=== PATIENT | female | born 1995 | race Caucasian/White ===

== ENCOUNTER 2016-07-29 21:58 | Emergency (ER) | payer OTHER, SELFPAY ==
--- NOTE | 2016-07-29 22:22 | EDM.PDOC ---
ED HPI GENERAL MEDICAL PROBLEM - General Chief Complaint: Gastrointestinal Problem Stated Complaint: BACK AND RIB PAIN Time Seen by Provider: 07/29/16 22:21 - History of Present Illness INITIAL COMMENTS - FREE TEXT/NARRATIVE: 20-year-old female presents emergency room with abdominal pain. This pain has for the most part resolved however occurred about an hour and a half ago in her right flank and wraps around to her right upper quadrant. She did not have any nausea or vomiting associated with this this started about 3 hours after her evening meal. The pain was not associated with any nausea vomiting constipation or diarrhea. Middle Back Pain Score (Numeric/FACES): 2 - Related Data Allergies Allergy/AdvReac Type Severity Reaction Status Date / Time Penicillins Allergy Hives Verified 07/29/16 22:20 Home Meds: Home Meds . 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 Denies: Constipation, Diarrhea, Nausea, Vomiting : Reports: no symptoms ED EXAM, GI/ABD - Physical Exam Exam: See Below Exam Limited By: No limitations General Appearance: alert, no apparent distress Head: atraumatic, normocephalic Neck: normal inspection, supple, non-tender, full range of motion Respiratory/Chest: no respiratory distress, lungs clear, normal breath sounds Cardiovascular: regular rate, rhythm, no edema, no murmur GI/Abdominal: Normal Bowel Sounds, Soft, Non-Tender, No Organomegaly Course - Vital Signs Last Recorded V/S: Last Vital Signs Temp 36.2 C 07/29/16 22:21 Pulse 68 07/29/16 22:21 Resp 16 07/29/16 22:21 BP 117/71 07/29/16 22:21 Pulse Ox 99 07/29/16 22:21 - Orders/Labs/Meds Labs: Laboratory Tests 05/01/0507/29/16 07/29/16 Range/Units 23:15 23:15 23:28 WBC 11.27 H (3.98-10.04) K/mm3 RBC 4.71 (3.98-5.22) M/mm3 Hgb 14.2 (11.2-15.7) gm/L Hct 41.5 (34.1-44.9) % MCV 88.1 (79.4-94.8) fl MCH 30.1 (25.6-32.2) pg MCHC 34.2 (32.2-35.5) g/dl RDW Std Deviation 42.7 (36.4-46.3) fL Plt Count 318 (182-369) K/mm3 MPV 10.0 (9.4-12.3) fl Neutrophils % (Manual) 73 H (40-60) % Band Neutrophils % 0 (0-10) % Lymphocytes % (Manual) 21 (20-40) % Atypical Lymphs % 0 % Monocytes % (Manual) 5 (2-10) % Eosinophils % (Manual) 1 (0.7-5.8) % Basophils % (Manual) 0 L (0.1-1.2) Platelet Estimate Adequate RBC Morph Comment Normal Sodium (136-145) mEq/L Potassium (3.5-5.1) mEq/L Chloride (98-107) mEq/L Carbon Dioxide (21-32) mEq/L Anion Gap (5-15) BUN (7-18) mg/dL Creatinine (0.55-1.02) mg/dL Est Cr Clr Drug Dosing mL/min Estimated GFR (MDRD) (>60) mL/min BUN/Creatinine Ratio (14-18) Glucose (74-106) mg/dL Calcium (8.5-10.1) mg/dL Total Bilirubin (0.2-1.0) mg/dL AST (15-37) U/L ALT (14-59) U/L Alkaline Phosphatase (46-116) U/L Total Protein (6.4-8.2) g/dl Albumin (3.4-5.0) g/dl Globulin gm/dL Albumin/Globulin Ratio (1-2) Lipase (73-393) U/L Urine Color Yellow (Yellow) Urine Appearance Clear (Clear) Urine pH 6.5 (5.0-8.0) Ur Specific [place] 1.025 (1.005-1.030) Urine Protein Negative (Negative) Urine Glucose (UA) Negative (Negative) Urine Ketones Negative (Negative) Urine Occult Blood Negative (Negative) Urine Nitrite Negative (Negative) Urine Bilirubin Negative (Negative) Urine Urobilinogen 0.2 (0.2-1.0) Ur Leukocyte Esterase Negative (Negative) Urine RBC 0-5 (0-5) /hpf Urine WBC 0-5 (0-5) /hpf Ur Epithelial Cells 0-5 (0-5) /hpf Ur Squamous Epith Cells 0-5 (0-5) /hpf Amorphous Sediment Few H (NOT SEEN) /hpf Urine Bacteria Not seen (FEW) /hpf Urine Mucus Not seen (FEW) /hpf Urine HCG, Qual Negative (NEGATIVE) 07/29/16 Range/Units 23:28 WBC (3.98-10.04) K/mm3 RBC (3.98-5.22) M/mm3 Hgb (11.2-15.7) gm/L Hct (34.1-44.9) % MCV (79.4-94.8) fl MCH (25.6-32.2) pg MCHC (32.2-35.5) g/dl RDW Std Deviation (36.4-46.3) fL Plt Count (182-369) K/mm3 MPV (9.4-12.3) fl Neutrophils % (Manual) (40-60) % Band Neutrophils % (0-10) % Lymphocytes % (Manual) (20-40) % Atypical Lymphs % % Monocytes % (Manual) (2-10) % Eosinophils % (Manual) (0.7-5.8) % Basophils % (Manual) (0.1-1.2) Platelet Estimate RBC Morph Comment Sodium 141 (136-145) mEq/L Potassium 3.8 (3.5-5.1) mEq/L Chloride 107 (98-107) mEq/L Carbon Dioxide 30 (21-32) mEq/L Anion Gap 7.8 (5-15) BUN 9 (7-18) mg/dL Creatinine 0.9 (0.55-1.02) mg/dL Est Cr Clr Drug Dosing 83.17 mL/min Estimated GFR (MDRD) > 60 (>60) mL/min BUN/Creatinine Ratio 10.0 L (14-18) Glucose 81 (74-106) mg/dL Calcium 9.5 (8.5-10.1) mg/dL Total Bilirubin 0.2 (0.2-1.0) mg/dL AST 14 L (15-37) U/L ALT 29 (14-59) U/L Alkaline Phosphatase 107 (46-116) U/L Total Protein 7.4 (6.4-8.2) g/dl Albumin 3.9 (3.4-5.0) g/dl Globulin 3.5 gm/dL Albumin/Globulin Ratio 1.1 (1-2) Lipase 174 (73-393) U/L Urine Color (Yellow) Urine Appearance (Clear) Urine pH (5.0-8.0) Ur Specific [place] (1.005-1.030) Urine Protein (Negative) Urine Glucose (UA) (Negative) Urine Ketones (Negative) Urine Occult Blood (Negative) Urine Nitrite (Negative) Urine Bilirubin (Negative) Urine Urobilinogen (0.2-1.0) Ur Leukocyte Esterase (Negative) Urine RBC (0-5) /hpf Urine WBC (0-5) /hpf Ur Epithelial Cells (0-5) /hpf Ur Squamous Epith Cells (0-5) /hpf Amorphous Sediment (NOT SEEN) /hpf Urine Bacteria (FEW) /hpf Urine Mucus (FEW) /hpf Urine HCG, Qual (NEGATIVE) - Re-Assessments/Exams Free Text/Narrative Re-Assessment/Exam: 07/30/16 00:57 Laboratory evaluation nondiagnostic hCG is negative. Because of her abdominal pain that has since resolved is unclear at this point. The patient agrees to return to the emergency room in 12-24 hours if not better sooner if getting worse. Departure - Departure Time of Disposition: 00:58 Disposition: Home, Self-Care 01 Clinical Impression: Abdominal pain of unknown cause - Discharge Information Instructions: Abdominal Pain, Adult, [id number] Referrals: PCP,None [Primary Care Provider] - Forms: ED Department Discharge Additional Instructions: Return to the emergency room with any questions or problems. Return to the emergency room in 12-24 hours if not better sooner if getting worse The cause of your abdominal pain is not certain at this time. Clear liquid diet for the next 12 hours then slowly advance as tolerated. Followup in the clinic here at the hospital in 2 days for recheck. If this pain continues to be a recurrent problem consider a gallbladder ultrasound.
[2016-07-29 22:24] VITALS: BP 117/71
== END 2016-07-30 01:13 | disposition home or self-care (01) ==
LOC: JD.ED 21:58
DX: R10.11 Right upper quadrant pain (principal); Z88.0 Allergy status to penicillin; Z87.891 Personal history of nicotine dependence; Z98.890 Other specified postprocedural states
CPT/HCPCS: 36415; 80053; 81001; 81025; 83690; 85025; 99282; 99284

== ENCOUNTER 2016-08-16 23:49 | Emergency (ER) | payer OTHER, SELFPAY ==
[2016-08-16 23:56] VITALS: BP 116/72
--- NOTE | 2016-08-16 23:58 | EDM.PDOC ---
ED HPI GENERAL MEDICAL PROBLEM - General Chief Complaint: Back Pain or Injury Stated Complaint: [facility] Time Seen by Provider: 08/16/16 23:50 - History of Present Illness INITIAL COMMENTS - FREE TEXT/NARRATIVE: 20-year-old female returns emergency room via EMS with back pain. The pain is for the most part resolved at this point it came on roughly an hour ago with severe midthoracic radiated along her right side and under her diaphragm. The patient has been seen here one time for this before several weeks ago. She has done well during this time until tonight she ate supper around 6:00 this evening [employer] and [employer]. However did not have the discomfort until about 11:00 this evening. This was not associated with nausea or vomiting. The way she describes it he can almost been diaphragmatic spasm. She has not had a cough or congestion no fevers or chills. The patient has not had any low back discomfort however she has a family history of low back problems she has not had any pain going into her legs no loss of bowel or bladder control. 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, Social & Family History - Tobacco Use Smoking Status *Q: Former Smoker Years of Tobacco use: 3 Packs/Tins Daily: 1 Month Tobacco Last Used: 1 week ago - Recreational Drug Use Recreational Drug Use: No ED ROS GENERAL - Review of Systems Review Of Systems: See Below Constitutional: Reports: No Symptoms HEENT: Reports: No Symptoms Respiratory: Reports: No Symptoms, Other (She has some midthoracic pain tends to radiate to the level of her diaphragm) Cardiovascular: Reports: No Symptoms GI/Abdominal: Reports: Abdominal Pain (She is upper abdominal pain perhaps a little worse on the right compared to the left denies any reflux GERD or heartburn) : Reports: No Symptoms Neurological: Reports: No Symptoms ED EXAM,LOWER BACK PAIN/INJURY - Physical Exam Exam: See Below Exam Limited By: No Limitations General Appearance: Alert, No Apparent Distress Head: Atraumatic, Normocephalic Neck: Normal Inspection, Supple, Non-Tender, Full Range of Motion Respiratory/Chest: No Respiratory Distress, Lungs Clear, Normal Breath Sounds Cardiovascular: Regular Rate, Rhythm, No Edema, No Murmur GI/Abdominal: Normal Bowel Sounds, Soft, Non-Tender Back Exam: Normal Inspection, Vertebral Tenderness (She has significant vertebral tenderness at about T8 or T9 this is reproducible). No: CVA Tenderness (L), CVA Tenderness (R) Extremities: Normal Inspection, No Pedal Edema, Other (Straight leg raises negative) Course - Vital Signs Last Recorded V/S: Last Vital Signs Temp 35.6 C 08/16/16 23:51 Pulse 65 08/16/16 23:51 Resp 18 08/16/16 23:51 BP 116/72 08/16/16 23:51 Pulse Ox 100 08/16/16 23:51 - Orders/Labs/Meds Orders: Active Orders 24 hr Category Date Time Status Chest 1V Frontal [CR] Stat Exams 08/17/16 00:19 Taken Thoracic Spine 2V [CR] Stat Exams 08/17/16 00:09 Taken Labs: Laboratory Tests 08/17/16 08/17/16 Range/Units 00:16 00:16 Urine Color Yellow (Yellow) Urine Appearance Slt cloudy H (Clear) Urine pH 7.0 (5.0-8.0) Ur Specific [place] 1.020 (1.005-1.030) Urine Protein Trace H (Negative) Urine Glucose (UA) Negative (Negative) Urine Ketones Negative (Negative) Urine Occult Blood Negative (Negative) Urine Nitrite Negative (Negative) Urine Bilirubin Negative (Negative) Urine Urobilinogen 0.2 (0.2-1.0) Ur Leukocyte Esterase Negative (Negative) Urine RBC 0-5 (0-5) /hpf Urine WBC 0-5 (0-5) /hpf Ur Epithelial Cells Not Reportable Ur Squamous Epith Cells 0-5 (0-5) /hpf Amorphous Sediment Moderate H (NOT SEEN) /hpf Urine Bacteria Moderate H (FEW) /hpf Urine Mucus Few (FEW) /hpf Urine HCG, Qual Negative (NEGATIVE) - Re-Assessments/Exams Free Text/Narrative Re-Assessment/Exam: 08/17/16 01:40 Urinalysis is not suggestive of infectious process or other etiology. Her hCG is negative thoracic spine has no acute changes nor does AP chest. The cause of her pain is somewhat unclear it comes and goes consideration is diaphragmatic spasm muscle spasm it would be atypical for cholelithiasis and biliary colic but this is a possibility. At this point the patient is to followup in the clinic for further evaluation and treatment. We will discharge her with [place] # [id number], [phone] one or 2 every 6 hours as needed. The patient understands that if she uses the pain medication she should allow her self 12 hours after taking it before driving or returning to work. Departure - Departure Time of Disposition: 01:42 Disposition: Home, Self-Care Clinical Impression: Thoracic back pain, Upper abdominal pain of unknown etiology - Discharge Information Forms: ED Department Discharge Additional Instructions: Return to the emergency room with any questions or problems. Followup in the hospital clinic for further evaluation for this pain. [phone]. You've been given a prescription for [place] this is a pain medication take it only as needed one or 2 tablets every 6 hours. Allow 12 hours after using this medication before driving or returning to work. - My Orders Last 24 Hours: My Active Orders 08/17/16 00:09 Thoracic Spine 2V [CR] Stat 08/17/16 00:19 Chest 1V Frontal [CR] Stat - Assessment/Plan Last 24 Hours: My Active Orders 08/17/16 00:09 Thoracic Spine 2V [CR] Stat 08/17/16 00:19 Chest 1V Frontal [CR] Stat
--- NOTE | 2016-08-17 12:40 | CR ---
Chest: Frontal view of the chest was obtained. Comparison: No previous chest x-ray. Heart size and mediastinum are normal. Lungs are clear. Minimal scoliosis is noted within the spine. Bony structures are otherwise unremarkable. Impression: 1. Nothing acute is identified on frontal chest x-ray. Diagnostic code #2
--- NOTE | 2016-08-17 12:40 | CR ---
Thoracic spine: AP and lateral views of the thoracic spine were obtained. Comparison: No previous study. Slight scoliosis is seen. Vertebral body heights and disc spaces are maintained. Pedicles are intact. Small bilateral cervical ribs are seen. Impression: 1. Incidental findings Diagnostic code #2
== END 2016-08-17 01:55 | disposition home or self-care (01) ==
LOC: JD.ED 23:49
DX: M54.6 Pain in thoracic spine (principal); R10.10 Upper abdominal pain, unspecified; Z87.891 Personal history of nicotine dependence; Z88.0 Allergy status to penicillin
CPT/HCPCS: 71010; 71010-26; 72070; 72070-26; 81001; 81025; 99283; 99284

== ENCOUNTER 2016-09-23 07:08 | Day surgery (SDC) | payer OTHER, SELFPAY ==
[~2016-09-23 07:08] MED LIST: Bupivacaine 0.5%/EPINEPHrine 1:200,000 50 ML MDV ONE; Lactated Ringers 1,000 ML IV SCH; Lidocaine 1% with EPINEPHrine 1:100,000 20 ML MDV ONE; Lidocaine 1%/Sod Bicarbonate in NS 8.4% 1 ML Syringe PRN; Sodium Chloride 0.9% 10 ML Syringe FLUSH PRN
[2016-09-23] MEDS ORDERED: Propofol 200 MG/20 ML SDV ONE (07:25)
[2016-09-23] MEDS ORDERED: Lidocaine 1% 4 ML ONE (07:25)
[2016-09-23] MEDS ORDERED: Rocuronium 50 MG/5 ML Vial ONE (07:25)
[2016-09-23] MEDS ORDERED: Ondansetron 4 MG/2 ML SDV ONE (07:25)
[2016-09-23] MEDS ORDERED: fentaNYL 250 MCG/5 ML SDV ONE (07:26)
[2016-09-23] MEDS ORDERED: Midazolam 1 MG/ML 2 ML SDV ONE (07:26)
[2016-09-23] MEDS ORDERED: Dexamethasone 4 MG/ML SDV ONE (07:26)
[2016-09-23] MEDS ORDERED: ceFAZolin 1 GM Vial ONE (07:32)
--- NOTE | 2016-09-23 07:38 | PCM.PREANE ---
Preanesthetic Assessment - Anesthesia/Transfusion/Family Hx Anesthesia History: Prior Anesthesia Without Reaction Family History of Anesthesia Reaction: No Transfusion History: No Prior Transfusion(s) - Review of Systems General: No Symptoms Pulmonary: No Symptoms Cardiovascular: No Symptoms Gastrointestinal: No symptoms Neurological: No Symptoms Other: Reports: None - Physical Assessment NPO Status Date: 09/22/16 NPO Status Time: 23:00 Pulse: 60 O2 Sat by Pulse Oximetry: 95 Respiratory Rate: 16 Blood Pressure: 112/69 Temperature: 98 F Height: 5 ft 3 in Weight: 74.843 kg ASA Class: 2 Mental Status: Alert & Oriented x3 Airway Class: Mallampati = 1 Dentition: Reports: Normal Dentition Thyro-Mental Finger Breadths: 3 Mouth Opening Finger Breadths: 3 ROM/Head Extension: Full Lungs: Clear to auscultation, Normal respiratory effort Cardiovascular: Regular Rate, Regular Rhythm - Lab Values: Laboratory Last Values Urine HCG, Qual Negative (NEGATIVE) 09/23/16 07:13 - Allergies Allergies/Adverse Reactions: Allergies Allergy/AdvReac Type Severity Reaction Status Date / Time amoxicillin [From Trimox] Allergy Hives Verified 09/21/16 13:15 Penicillins Allergy Hives Verified 09/21/16 13:15 - Blood Blood Available: No - Acknowledgements Anesthesia Type Planned: General Anesthesia Pt an Appropriate Candidate for the Planned Anesthesia: Yes Alternatives and Risks of Anesthesia Discussed w Pt/Guardian: Yes Pt/Guardian Understands and Agrees with Anesthesia Plan: Yes PreAnesthesia Questionnaire HEENT History: Reports: Sinusitis Other HEENT History: oral surgery Cardiovascular History: Reports: None Respiratory History: Reports: None Gastrointestinal History: Reports: None Genitourinary History: Reports: None 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: Polycystic 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, , Other (See Below) Other OB/BYN History: abnormal menses Musculoskeletal History: Reports: Back Pain, Chronic Neurological History: Reports: None Psychiatric History: Reports: None Endocrine/Metabolic History: Reports: None Hematologic History: Reports: None Immunologic History: Reports: None Oncologic (Cancer) History: Reports: None Dermatologic History: Reports: Other (See Below) Other Dermatologic History: impetigo - Past Surgical History Head Surgeries/Procedures: Reports: None HEENT Surgical History: Reports: Oral Surgery Female Surgical History: Reports: None - SUBSTANCE USE Smoking Status *Q: Current Every Day Smoker (.5-1 ppd for 4 years) Tobacco Use Within Last Twelve Months: Cigarettes Second Hand Smoke Exposure: Yes Days Per Week of Alcohol Use: 0 (rarely) Recreational Drug Use History: No - HOME MEDS Home Medications: Home Meds Acetaminophen/HYDROcodone [[place] 325-5 MG] 1 - 2 tab PO Q4H PRN 09/21/16 [ History] - CURRENT (IN HOUSE) MEDS Current Meds: Current Medications Lactated Ringer's (Ringers, Lactated) 1,000 mls @ 125 mls/hr IV ASDIRECTED FIDEL Stop: 09/23/16 23:00 Lidocaine/Sodium Bicarbonate (Buffered Lidocaine 1% In Ns 8.4%) 0.25 ml .XX ONETIME PRN PRN Reason: Prior to IV Start Stop: 09/23/16 18:00 Sodium Chloride (Saline Flush) 10 ml FLUSH ASDIRECTED PRN PRN Reason: Keep Vein Open Stop: 09/23/16 18:00 Discontinued Medications Bupivacaine HCl/Epinephrine Bitart (Marcaine 0.5%/Epinephrine 1:200,000) Confirm Administered Dose 50 ml .ROUTE .STK-MED ONE Stop: 09/23/16 07:07 Cefazolin Sodium (Ancef) Confirm Administered Dose 2 gm .ROUTE .STK-MED ONE Stop: 09/23/16 07:33 Dexamethasone (Dexamethasone) Confirm Administered Dose 4 mg .ROUTE .STK-MED ONE Stop: 09/23/16 07:27 Fentanyl (Sublimaze) Confirm Administered Dose 250 mcg .ROUTE .STK-MED ONE Stop: 09/23/16 07:27 Lidocaine HCl (Xylocaine-Mpf 1%) Confirm Administered Dose 4 mls @ as directed .ROUTE .STK-MED ONE Stop: 09/23/16 07:26 Lidocaine/Epinephrine (Xylocaine 1% With Epinephrine 1:100,000) Confirm Administered Dose 20 ml .ROUTE .STK-MED ONE Stop: 09/23/16 07:07 Midazolam HCl (Versed 1 Mg/Ml) Confirm Administered Dose 2 mg .ROUTE .STK-MED ONE Stop: 09/23/16 07:27 Ondansetron HCl (Zofran) Confirm Administered Dose 4 mg .ROUTE .STK-MED ONE Stop: 09/23/16 07:26 Propofol (Diprivan 20 Ml) Confirm Administered Dose 200 mg .ROUTE .STK-MED ONE Stop: 09/23/16 07:26 Rocuronium [place] (Zemuron) Confirm Administered Dose 50 mg .ROUTE .[facility]-MED ONE Stop: 09/23/16 07:26
[2016-09-23] MEDS ORDERED: Lactated Ringers 1,000 ML ONE (08:29)
[2016-09-23] MEDS ORDERED: Meperidine PF 50 MG/ML Syringe IVPUSH PRN (08:32)
[2016-09-23] MEDS ORDERED: fentaNYL 100 MCG/2 ML SDV IVPUSH PRN (08:32)
[2016-09-23] MEDS ORDERED: Metoclopramide 10 MG/2 ML SDV ONE (08:32)
[2016-09-23] MEDS ORDERED: Ondansetron 4 MG/2 ML SDV IVPUSH PRN (08:32)
[2016-09-23] MEDS ORDERED: Neostigmine Methylsulfate 1 MG/ML 5 ML Syringe ONE (08:52)
--- NOTE | 2016-09-23 09:13 | PCM.POSTAN ---
POST ANESTHESIA ASSESSMENT - MENTAL STATUS Mental Status: alert, oriented - VITAL SIGNS Pulse Rate: 104 SaO2: 99 Resp Rate: 16 Blood Pressure: 134/80 Temperature: 98.4 F - RESPIRATORY Respiratory Status: respiratory rate WNL, airway patent, supplemental oxygen - CARDIOVASCULAR CV Status: pulse rate WNL, blood pressure stable - GASTROINTESTINAL GI Status: no symptoms - PAIN Pain Score: 3 - POST OP HYDRATION Hydration Status: adequate & stable
[2016-09-23] MEDS: HYDROmorphone 0.5 MG/0.5 ML Syringe IVPUSH PRN ×2 (09:15→09:45)
--- NOTE | 2016-09-23 09:16 | PCM.OPNOTE ---
- General Post-Op/Procedure Note Date of Surgery/Procedure: 09/23/16 Operative Procedure(s): Laparoscopic cholecystectomy Findings: yellow gall stones, chronic inflammation Pre Op Diagnosis: biliary colic secondary to cholelithiasis Post-Op Diagnosis: Chronic cholecystitis secondary to cholelithiasis Anesthesia Technique: General ET tube, Local Primary Surgeon: Edgardo Santoro Pathology: Gallbladder and contents EBL in mLs: 2 Complications: None Condition: Good Free Text/Narrative:: After adequate general endotracheal tube anesthesia was obtained the patient's abdomen was prepped and draped in the usual fashion for a laparoscopic cholecystectomy. After local analgesia was given a supraumbilical incision was made with a 15 blade down to the fascia. The fascia was entered in the midline. A 12 mm camera port was inserted followed by CO2 pneumoperitoneum. Exploration revealed the findings above. 3 working ports were placed along the right subcostal margin 5 mm in size each. The dome of the gallbladder was grasped and it was retracted along with the liver in a cephalad direction. Adhesions between the transverse colon and body of the gallbladder were taken down with cautery. I grasped Floyd's pouch and dissected out the cystic duct and cystic artery which were clipped in continuity with 5 mm clips and subsequently divided. The gallbladder was taken down in a retrograde fashion with cautery. The gallbladder was placed in a bag and removed through the umbilicus. The area was carefully inspected and was hemostatic and bile static. There was no obvious bowel injury. The abdomen was decannulated under direct vision there was no bleeding from the port sites. CO2 pneumoperitoneum was released. The supraumbilical incision port site was closed within interrupted 0 Vicryl suture. Subcutaneous tissues and skin were closed with Vicryl as well. Mastisol and Steri-Strips were used for the dressing along with gauze. She tolerated the procedure well. There were no consultations. Photographs taken for the patient and for the record.
[2016-09-23] MEDS ORDERED: Acetaminophen/Codeine 300-30 MG Tab PO PRN (09:53)
[2016-09-23] MEDS ORDERED: Ketorolac 30 MG/ML SDV IVPUSH ONE (10:00)
--- NOTE | 2016-09-23 10:27 | PCM48HPAN ---
Post Anesthesia Note - EVALUATION WITHIN 48HRS OF ANESTHETIC Vital Signs in Normal Range: Yes Patient Participated in Evaluation: Yes Respiratory Function Stable: Yes Airway Patent: Yes Cardiovascular Function Stable: Yes Hydration Status Stable: Yes Pain Control Satisfactory: Yes Nausea and Vomiting Control Satisfactory: Yes Mental Status Recovered: Yes
[2016-09-23 10:57] VITALS: BP 109/68
== END 2016-09-23 10:55 | disposition home or self-care (01) ==
LOC: JD.SDS 07:08
PROVIDERS: ATTEND Surgery
PROC: 0FT44ZZ Resection of Gallbladder, Percutaneous Endoscopic Approach (ICD-10-PCS; principal; 2016-09-23)
DX: K80.10 Calculus of gallbladder with chronic cholecystitis without obstruction (principal)
CPT/HCPCS: 47562; 81025; 88304; A9270; J0690; J1100; J1170; J1885; J2250; J2405; J2710; J2765; J3010; J7120; 00790; J2704

== ENCOUNTER 2017-07-09 03:06 | Emergency (ER) | payer OTHER ==
[2017-07-09 03:17] VITALS: BP 123/89
--- NOTE | 2017-07-09 03:34 | EDM.PDOC ---
ED HPI GENERAL MEDICAL PROBLEM - General Chief Complaint: ENT Problem Stated Complaint: LEFT EAR HURTS Time Seen by Provider: 07/09/17 03:34 Source of Information: Reports: Patient History Limitations: Reports: No Limitations - History of Present Illness INITIAL COMMENTS - FREE TEXT/NARRATIVE: 21-year-old female presents the ED with severe left ear pain that awoke her from sleep. She reports developing cold-like symptoms about 10 days ago with particularly muffled hearing on the left side and pain in the left side of her face involving the left maxillary sinus area. She was very nasally congested still remains a little bit nasal congestion but she states while gets get better. She never did develop a cough with this illness. Pain in the left ear is constant with intermittent piercing lancinating pain. His C[place]le been appreciated. She does appreciated that the hearing is muffled in that ear for about 10 days. He was mildly uninvolved but is now getting better. She denies any sore throat. Onset: Gradual (Milder pain yesterday much worse) Onset Date: 07/08/17 (Left ear pain yesterday but muffled hearing for the last 10 days since she contracted a cold. Of ear pain started tonight that awoke her from sleep and she is unable to get back to sleep due to pain Motrin has not helped) Duration: Hour(s): Location: Reports: Face (Left ear pain) Quality: Reports: Ache, Sharp (Lancinating sharp stabbing at times), Stabbing Severity: Moderate Improves with: Reports: None Worsens with: Reports: None Context: Reports: Other (Had a cold over the last 10 days. Produced left maxillary sinus pressure discomfort and muffled hearing in her left ear.). 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 (Motrin without any relief.) Left Ear Pain Score (Numeric/FACES): 6 - Related Data Allergies Allergy/AdvReac Type Severity Reaction Status Date / Time amoxicillin [From Trimox] Allergy Hives Verified 07/09/17 03:17 Penicillins Allergy Hives Verified 07/09/17 03:17 Home Meds: Home Meds Azithromycin [Zithromax] 500 mg PO DAILY #8 tab 07/09/17 [Rx] Citalopram [Citalopram HBr] 20 mg PO DAILY 07/09/17 [History] Loratadine/Pseudoephedrine [Claritin-D 24 Hour Tablet] 1 each PO DAILY #5 tab.er.24h 07/09/17 [Rx] oxyCODONE HCl/Acetaminophen [Percocet 5-325 mg Tablet] 1 - 2 each PO Q4H PRN # 12 tablet 07/09/17 [Rx] Past Medical History HEENT History: Reports: Sinusitis Other HEENT History: oral surgery Cardiovascular History: Reports: None Respiratory History: Reports: None Gastrointestinal History: Reports: None Genitourinary History: Reports: None 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: Reports: Polycystic Ovaries, Other OB/BYN History: abnormal menses Musculoskeletal History: Reports: Back Pain, Chronic Neurological History: Reports: None Psychiatric History: Reports: Depression Endocrine/Metabolic History: Reports: None Hematologic History: Reports: None Immunologic History: Reports: None Oncologic (Cancer) History: Reports: None Dermatologic History: Reports: Other (See Below) Other Dermatologic History: impetigo - Past Surgical History Head Surgeries/Procedures: Reports: None HEENT Surgical History: Reports: Oral Surgery Female Surgical History: Reports: None Social & Family History - Tobacco Use Smoking Status *Q: Former Smoker Years of Tobacco use: 3 Packs/Tins Daily: 1 Used Tobacco, but Quit: Yes Month/Year Tobacco Last Used: feb 05 Second Hand Smoke Exposure: Yes - Caffeine Use Caffeine Use: Reports: None - Alcohol Use Days Per Week of Alcohol Use: 0 (rarely) - Recreational Drug Use Recreational Drug Use: No - Living Situation & Occupation Living situation: Reports: Occupation: Employed ED ROS ENT - Review of Systems Review Of Systems: See Below Constitutional: Denies: Fever, Chills, Malaise, Weakness, Fatigue, Decreased Appetite, Weight Loss HEENT: Reports: Ear Pain, Hearing Loss (Severe left side is poorly the left ear for last 10 days feels --muffled hearing.), Rhinitis. Denies: Throat Pain ( Cold symptoms are improving.), Throat Swelling Respiratory: Reports: No Symptoms. Denies: Shortness of Breath, Wheezing, Pleuritic Chest Pain, Cough Cardiovascular: Reports: No Symptoms Endocrine: Reports: No Symptoms GI/Abdominal: Reports: No Symptoms : Reports: No Symptoms Musculoskeletal: Reports: No Symptoms Skin: Reports: No Symptoms Neurological: Reports: No Symptoms Psychiatric: Reports: No Symptoms Hematologic/Lymphatic: Reports: No Symptoms Immunologic: Reports: No Symptoms ED EXAM, ENT - Physical Exam Exam: See Below Exam Limited By: No Limitations General Appearance: Alert, WD/WN, No Apparent Distress Ears: Normal External Exam, Normal Canal, TM Bulging (Left left with large bullous myringitis in the center syndrome.), TM Dullness (Mild on the right), TM Erythema, TM Fluid (Mild on the right), TM Vesicles (Left). No: Hearing Grossly Normal, TM Blood, TM Perforation, TM Obscured by Cerumen Nose: Nasal Swelling (Has no nasal polyps and swelling of the turbinates bilaterally.), Injected Turbinates Mouth/Throat: Normal Inspection, Normal Lips, Normal Oropharynx Head: Atraumatic, Normocephalic Neck: Normal Inspection, Supple, Non-Tender, Full Range of Motion. No: Lymphadenopathy (L), Lymphadenopathy (R) Respiratory/Chest: No Respiratory Distress, Lungs Clear, Normal Breath Sounds, No Accessory Muscle Use, Chest Non-Tender Cardiovascular: Normal Peripheral Pulses, Regular Rate, Rhythm, No Edema, No Gallop, No Murmur Course - Vital Signs Last Recorded V/S: Last Vital Signs Temp 36.4 C 07/09/17 03:12 Pulse 52 L 07/09/17 03:12 Resp 18 07/09/17 03:12 BP 123/89 07/09/17 03:12 Pulse Ox 100 07/09/17 03:12 - Orders/Labs/Meds Orders: Active Orders 24 hr Category Date Time Status Peripheral IV Care [RC] . DIRECTED Care 07/09/17 03:42 Active Ketorolac [Toradol] Med 07/09/17 03:45 Active 30 mg IVPUSH ONETIME Sodium Chloride 0.9% [Saline Flush] Med 07/09/17 03:42 Active 10 ml FLUSH ASDIRECTED PRN Peripheral IV Insertion Adult [OM.PC] Stat Oth 07/09/17 03:42 Ordered Medication Orders Ketorolac Tromethamine (Toradol) 30 mg IVPUSH ONETIME [facility] Last Admin: 07/09/17 03:52 Dose: 30 mg Sodium Chloride (Saline Flush) 10 ml FLUSH ASDIRECTED PRN PRN Reason: Keep Vein Open Last Admin: 07/09/17 03:52 Dose: 10 ml Meds: Medications Generic Name Dose Route Start Last Admin Trade Name Delmy PRN Reason Stop Dose Admin Ketorolac Tromethamine 30 mg 07/09/17 03:45 07/09/17 03:52 Toradol IVPUSH 30 mg ONETIME FIDEL Administration Sodium Chloride 10 ml 07/09/17 03:42 07/09/17 03:52 Saline Flush FLUSH 10 ml ASDIRECTED PRN Administration Keep Vein Open Discontinued Medications Generic Name Dose Route Start Last Admin Trade Name Freq PRN Reason Stop Dose Admin Ceftriaxone Sodium 1 gm/ 100 mls @ 200 mls/hr 07/09/17 03:42 07/09/17 03:52 Sodium Chloride IV 07/09/17 04:11 200 mls/hr ONETIME ONE Administration - Radiology Interpretation Free Text/Narrative:: 21-year-old female presents to the ED from [place] where she drove down by herself. She will such terrible ear pain and Motrin was not helping she elected to come down to the ED. She's had cold symptoms for about 10 days. She recognizes muffled hearing in the left ear and mildly in the right ear as well but right ear is improving. Severe pain in left ear during the night and taking Motrin has not helped. No perforation or drainage from the ear is occurred. However on examination she has a large bolus myringitis on the left side that looks like ready to pop at any time. The right contains a small amount of fluid. She has a lateral nasal congestion with some evidence of chronic allergic rhinitis. Oropharynx is clear. Plan I think eardrum is at high risk of rupture. Will therefore give her Rocephin 1 g intravenously and Toradol 30 mg IV for pain relief. 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 - Re-Assessments/Exams Free Text/Narrative Re-Assessment/Exam: 07/09/17 04:21 Rocephin has been infused. Should states the pain is completely gone with the IV Toradol. Her be discharged to home. She will plan on travel back to [place]. She will be taken the day off of work and I will write a note to that effect. Medications at home will be Zithromax 500 mg by mouth once daily for the next 8 days. First toe will be due at bedtime tonight. Claritin-D 24-hour release 1 tablet every morning for the next 5 days to as a decongestant. Percocet tabs //25 10 tablets one or 2 every 4-6 hours needed for pain relief until the antibiotics become effectual. Departure - Departure Time of Disposition: 04:22 Disposition: Home, Self-Care 01 Condition: Fair Clinical Impression: Otitis media Qualifiers: Otitis media type: suppurative Chronicity: acute Laterality: left Recurrence: not specified as recurrent Spontaneous tympanic membrane rupture: without spontaneous rupture Qualified Code(s): H66.002 - Acute suppurative otitis media without spontaneous rupture of ear drum, left ear Acute serous otitis media Qualifiers: Laterality: right Recurrence: not specified as recurrent Qualified Code(s): H65.01 - Acute serous otitis media, right ear - Discharge Information Prescriptions: Azithromycin [Zithromax] 500 mg PO DAILY #8 tab Loratadine/Pseudoephedrine [Claritin-D 24 Hour Tablet] 1 each PO DAILY #5 tab.er.24h oxyCODONE HCl/Acetaminophen [Percocet 5-325 mg Tablet] 1 - 2 each PO Q4H PRN # 12 tablet PRN Reason: pain relief. Referrals: PCP,None [Primary Care Provider] - Forms: ED Department Discharge Additional Instructions: Evaluation in the emergency him today in regards to acute onset of severe left ear pain. Cold symptoms for the last 10 days of left knee with fluid in her middle ear cavities on both ears on the right side we call this serous otitis media as there is no active infection at present. On the left however there is very active infection with a large bleb or formation on the eardrum making it very prone to perforation. You're therefore given initial dose of antibiotic intravenously Rocephin 1 g in the ED. Also medication Toradol 30 mg IV for pain relief. At home treatment will be Claritin-D 24-hour release 1 tablet in the morning for the next 5 days to decongest the nose and hopefully open the eustachian tubes and promote drainage of the middle ear fluid from the ear to prevent perforation. Antibiotic is to be Zithromax 500 mg once daily for the next 8 days [facility] Percocet tabs suggest 1 tablet with Motrin 600 mg tablet every 6 hours as needed for pain relief. You may need this for the next day or 2 until the antibiotics are working well for you. Just your checkup with personal care physician in 2 weeks time - My Orders Last 24 Hours: My Active Orders 07/09/17 03:42 Peripheral IV Care [RC] . DIRECTED Sodium Chloride 0.9% [Saline Flush] 10 ml FLUSH ASDIRECTED PRN Peripheral IV Insertion Adult [OM.PC] Stat 07/09/17 03:45 Ketorolac [Toradol] 30 mg IVPUSH ONETIME - Assessment/Plan Last 24 Hours: My Active Orders 07/09/17 03:42 Peripheral IV Care [RC] . DIRECTED Sodium Chloride 0.9% [Saline Flush] 10 ml FLUSH ASDIRECTED PRN Peripheral IV Insertion Adult [OM.PC] Stat 07/09/17 03:45 Ketorolac [Toradol] 30 mg IVPUSH ONETIME
[2017-07-09] MEDS ORDERED: Sodium Chloride 0.9% 10 ML Syringe FLUSH PRN (03:42)
[2017-07-09] MEDS ORDERED: cefTRIAXone 1 GM in Sodium Chloride 0.9% 100 ML IV ONE (03:42)
[2017-07-09] MEDS ORDERED: Ketorolac 30 MG/ML SDV IVPUSH SCH (03:45)
[2017-07-09] MEDS ORDERED: Acetaminophen/oxyCODONE 325-5 MG Tab PO ONE (04:21)
== END 2017-07-09 04:35 | disposition home or self-care (01) ==
LOC: JD.ED 03:06
DX: H66.002 Acute suppurative otitis media without spontaneous rupture of ear drum, left ear (principal); H65.01 Acute serous otitis media, right ear; Z79.899 Other long term (current) drug therapy; Z88.0 Allergy status to penicillin; Z88.1 Allergy status to other antibiotic agents; Z87.891 Personal history of nicotine dependence
CPT/HCPCS: 96374; 99283; A9270; J0696; J1885; J7030; J7050; 99284

== ENCOUNTER 2017-08-11 21:17 | Emergency (ER) | payer BC, OTHER ==
[2017-08-11 21:31] VITALS: BP 124/76
--- NOTE | 2017-08-11 21:57 | EDM.PDOC ---
ED HPI GENERAL MEDICAL PROBLEM - General Chief Complaint: Gastrointestinal Problem Stated Complaint: FEVER AND THROWING UP Time Seen by Provider: 08/11/17 21:56 - History of Present Illness INITIAL COMMENTS - FREE TEXT/NARRATIVE: 21-year-old female presents emergency room with nausea vomiting possible fevers. Patient developed some nauseaEarly this morning around 7 AM. She's vomited 3 times. She's concerned about a fever it was up to 99.6. She has some occasional crampy abdominal discomfort. Past medical history significant for polycystic ovarian disease otherwise unremarkable. Right Abdominal Pain Score (Numeric/FACES): 5 - Related Data Allergies Allergy/AdvReac Type Severity Reaction Status Date / Time amoxicillin [From Trimox] Allergy Hives Verified 08/11/17 21:31 Penicillins Allergy Hives Verified 08/11/17 21:31 Home Meds: Home Meds Citalopram [Citalopram HBr] 20 mg PO DAILY 07/09/17 [History] Loratadine/Pseudoephedrine [Claritin-D 24 Hour Tablet] 1 each PO DAILY #5 tab.er.24h 07/09/17 [Rx] oxyCODONE HCl/Acetaminophen [Percocet 5-325 mg Tablet] 1 - 2 each PO Q4H PRN # 12 tablet 07/09/17 [Rx] Past Medical History HEENT History: Reports: Sinusitis Other HEENT History: oral surgery Cardiovascular History: Reports: None Respiratory History: Reports: None Gastrointestinal History: Reports: None Genitourinary History: Reports: None 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: Polycystic Ovaries, Other OB/BYN History: abnormal menses Musculoskeletal History: Reports: Back Pain, Chronic Neurological History: Reports: None Psychiatric History: Reports: Depression Endocrine/Metabolic History: Reports: None Hematologic History: Reports: None Immunologic History: Reports: None Oncologic (Cancer) History: Reports: None Dermatologic History: Reports: Other (See Below) Other Dermatologic History: impetigo - Past Surgical History Head Surgeries/Procedures: Reports: None HEENT Surgical History: Reports: Oral Surgery Female Surgical History: Reports: None Social & Family History - Caffeine Use Caffeine Use: Reports: None - Living Situation & Occupation Living situation: Reports: Occupation: Employed ED ROS GENERAL - Review of Systems Review Of Systems: See Below Constitutional: Reports: Fever (Up to 99.6 noticed one time) HEENT: Reports: No Symptoms Respiratory: Reports: No Symptoms Cardiovascular: Reports: No Symptoms Endocrine: Reports: No Symptoms GI/Abdominal: Reports: Abdominal Pain (Mild), Nausea, Vomiting. Denies: Constipation, Diarrhea : Reports: No Symptoms Musculoskeletal: Reports: No Symptoms Skin: Reports: No Symptoms Neurological: Reports: No Symptoms Psychiatric: Reports: No Symptoms ED EXAM, GI/ABD - Physical Exam Exam: See Below Exam Limited By: No Limitations General Appearance: Alert, No Apparent Distress Throat/Mouth: Normal Inspection, Normal Lips, Normal Teeth, Normal Oropharynx, No Airway Compromise Neck: Normal Inspection, Supple, Non-Tender, Full Range of Motion. No: Lymphadenopathy (L), Lymphadenopathy (R) Respiratory/Chest: No Respiratory Distress, Lungs Clear Cardiovascular: Regular Rate, Rhythm, No Edema, No Murmur GI/Abdominal Exam: Normal Bowel Sounds, Soft, Tender (Vague very mild discomfort ). No: Distended, Guarding, Rigid, Rebound, Abnormal Bowel Sounds, Mass, Hepatomegaly, Splenomegaly Back Exam: Normal Inspection. No: CVA Tenderness (L), CVA Tenderness (R) Extremities: Normal Inspection, No Pedal Edema Neurological: Alert, Oriented, Normal Gait Course - Vital Signs Last Recorded V/S: Last Vital Signs Temp 37.0 C 08/11/17 21:26 Pulse 91 08/11/17 21:26 Resp 18 08/11/17 21:26 BP 124/76 08/11/17 21:26 Pulse Ox 96 08/11/17 21:26 Orthostatic Blood Pressure [ 114/73 Standing] Orthostatic Blood Pressure [ 114/76 Sitting] Orthostatic Blood Pressure [ 114/70 Supine] - Orders/Labs/Meds Meds: Medications Discontinued Medications Generic Name Dose Route Start Last Admin Trade Name Brysonq PRN Reason Stop Dose Admin Ondansetron HCl 4 mg 08/11/17 22:24 08/11/17 22:30 Zofran Odt PO 08/11/17 22:25 4 mg ONETIME ONE Administration - Re-Assessments/Exams Free Text/Narrative Re-Assessment/Exam: 08/11/17 23:16 Patient doing much better after Zofran ODT she is keeping fluids down she would like to go home no abdominal pain. She'll be given Zofran No. 6 from the machine in the waiting room one every 6 hours as needed. Departure - Departure Time of Disposition: 23:17 Disposition: Home, Self-Care 01 Clinical Impression: Nausea and vomiting - Discharge Information Referrals: Ml Aguila PA [Primary Care Provider] - Forms: ED Department Discharge Additional Instructions: Return to the emergency room with any questions problems worsening symptoms. Return to emergency room if not better in 24 hour Use the Zofran ODT 4 mg every 6 hours as needed for nausea and vomiting return to the emergency room with any questions problems worsening symptoms. Clear liquid diet for 24 hours then slowly advance as tolerated
[2017-08-11] MEDS ORDERED: Ondansetron 4 MG Tab.DIS PO ONE (22:24)
== END 2017-08-11 23:36 | disposition home or self-care (01) ==
LOC: JD.ED 21:17
DX: R11.2 Nausea with vomiting, unspecified (principal); Z88.1 Allergy status to other antibiotic agents; Z88.0 Allergy status to penicillin
CPT/HCPCS: 99283; A9270

== ENCOUNTER 2017-09-05 21:06 | Emergency (ER) | payer BC ==
[2017-09-05 21:14] VITALS: BP 126/74
--- NOTE | 2017-09-05 21:54 | EDM.PDOC ---
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 She states that her hCGs have been low and they have been followed serially by Ml Aguila. Her most recent hCG was 3 days ago and was 600. Today she started to have some light brownish colored spotting and some mild lower abdominal cramping so came in for evaluation. She has not had any heavy bleeding or bright red bleeding. She feels fine. She has some mild lower abdominal cramping which she's had on and off. No recent illness. No recent trauma. She does have an appointment to follow up with Ml tomorrow. 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: Polycystic Ovaries, Other OB/BYN History: abnormal menses Musculoskeletal History: Reports: Back Pain, Chronic Neurological History: Reports: None Psychiatric History: Reports: Depression Endocrine/Metabolic History: Reports: None Hematologic History: Reports: None Immunologic History: Reports: None Oncologic (Cancer) History: Reports: None Dermatologic History: Reports: Other (See Below) Other Dermatologic History: impetigo - Past Surgical History Head Surgeries/Procedures: Reports: None HEENT Surgical History: Reports: Oral Surgery Female Surgical History: Reports: None Social & Family History - Family History Family Medical History: Noncontributory - Tobacco Use Smoking Status *Q: Never Smoker - Caffeine Use Caffeine Use: Reports: Coffee, Tea - Recreational Drug Use Recreational Drug Use: No - Living Situation & Occupation Living situation: Reports: Occupation: Employed ED ROS GENERAL - Review of Systems Review Of Systems: See Below Constitutional: Denies: Fever HEENT: Reports: No Symptoms Respiratory: Denies: Shortness of Breath Cardiovascular: Denies: Chest Pain Endocrine: Reports: No Symptoms GI/Abdominal: Denies: Abdominal Pain : Denies: Dysuria Musculoskeletal: Reports: No Symptoms Skin: Reports: No Symptoms Neurological: Reports: No Symptoms Psychiatric: Reports: No Symptoms Hematologic/Lymphatic: Reports: No Symptoms Immunologic: Reports: No Symptoms ED EXAM - Physical Exam Exam: See Below Exam Limited By: No Limitations General Appearance: Alert, WD/WN, No Apparent Distress Eye Exam: Bilateral Eye: Normal Inspection Ears: Normal External Exam Nose: Normal Inspection Throat/Mouth: Normal Inspection, Normal Oropharynx, Normal Voice, No Airway Compromise Head: Atraumatic, Normocephalic Neck: Normal Inspection, Supple, Non-Tender, Full Range of Motion Respiratory/Chest: No Respiratory Distress, Lungs Clear, Normal Breath Sounds, Chest Non-Tender Cardiovascular: Normal Peripheral Pulses, Regular Rate, Rhythm, No Edema, No Murmur GI/Abdominal Exam: Soft, Non-Tender, No Distention. No: Rebound Extremities: Normal Inspection Neurological: Alert, Oriented, Normal Cognition, No Motor/Sensory Deficits Psychiatric: Normal Affect, Normal Mood Skin Exam: Warm, Dry, Intact, Normal Color, No Rash Course - Vital Signs Last Recorded V/S: Last Vital Signs Temp 37.0 C 09/05/17 21:11 Pulse 62 09/05/17 21:11 Resp 18 09/05/17 21:11 BP 126/74 09/05/17 21:11 Pulse Ox 100 09/05/17 21:11 - Orders/Labs/Meds Orders: Active Orders 24 hr Category Date Time Status Pelvic Exam, Set Up [RC] ASDIRECTED Care 09/05/17 21:56 Active OB Transvaginal [US] Stat Exams 09/05/17 21:55 Taken Labs: Laboratory Tests 09/05/17 09/05/17 Range/Units 21:30 21:30 WBC 10.78 H (3.98-10.04) K/mm3 RBC 4.54 (3.98-5.22) M/mm3 Hgb 13.8 (11.2-15.7) gm/L Hct 40.4 (34.1-44.9) % MCV 89.0 (79.4-94.8) fl MCH 30.4 (25.6-32.2) pg MCHC 34.2 (32.2-35.5) g/dl RDW Std Deviation 40.0 (36.4-46.3) fL Plt Count 313 (182-369) K/mm3 MPV 9.1 L (9.4-12.3) fl Neut % (Auto) 66.3 (34.0-71.1) % Lymph % (Auto) 25.9 (19.3-51.7) % [place] % (Auto) 6.5 (4.7-12.5) % Eos % (Auto) 0.9 (0.7-5.8) Baso % (Auto) 0.3 (0.1-1.2) % Neut # (Auto) 7.15 H (1.56-6.13) K/mm3 Lymph # (Auto) 2.79 (1.18-3.74) K/mm3 [place] # (Auto) 0.70 H (0.24-0.36) K/mm3 Eos # (Auto) 0.10 (0.04-0.36) K/mm3 Baso # (Auto) 0.03 (0.01-0.08) K/mm3 HCG, Quant 1053.0 mIU/mL - Re-Assessments/Exams Free Text/Narrative Re-Assessment/Exam: 09/06/17 00:59 Continues to feel well, continues to have minimal brown spotting without bright bleeding or significant pelvic pain. Ultrasound shows tiny anechoic focus located eccentrically within the endometrium with a mean diameter is 3 mm. This may potentially represent a gestational sac which could correspond to a gestational age of 4 weeks 6 days given early gestational age, it may be too early to detect pole by ultrasound. Correlate with serial beta hCG. No evidence of ectopic is seen on the provided images, this cannot be totally excluded. Recommend follow-up serial beta hCGs and repeat ultrasound in 7-10 days. I discussed this finding with the patient. She has follow-up scheduled with [facility] tomorrow. Discussed return precautions. Departure - Departure Time of Disposition: 00:34 Disposition: Home, Self-Care 01 Clinical Impression: Threatened , Vaginal bleeding affecting early - Discharge Information Instructions: Threatened Miscarriage Referrals: Ml Aguila PA [Primary Care Provider] - Forms: ED Department Discharge Additional Instructions: 1. Follow up with Ml as planned. You will need a repeat HCG this week, and a repeat ultrasound in 7-10 days. 2. Your ultrasound today shows a possible gestational sac corresponding to gestational age of 4 weeks 6 days. This would fit with your HCG. 3. Return to the ED if you have severely heavy bleeding, severe pain, or other concerning symptoms. - My Orders Last 24 Hours: My Active Orders 09/05/17 21:55 OB Transvaginal [US] Stat 09/05/17 21:56 Pelvic Exam, Set Up [RC] ASDIRECTED - Assessment/Plan Last 24 Hours: My Active Orders 09/05/17 21:55 OB Transvaginal [US] Stat 09/05/17 21:56 Pelvic Exam, Set Up [RC] ASDIRECTED
--- NOTE | 2017-09-07 15:05 | US ---
Obstetrical ultrasound: Multiple real-time images were obtained transvaginally. Comparison: No previous study. Small cystic structure is noted within the endometrial cavity measuring approximately 3 mm. There appears to be surrounding decidual reaction present. Small amount of free fluid is seen within the cul-de-sac. Slightly complicated area is seen within the right ovary which is believed to be incidental. Left ovary is unremarkable. Impression: 1. Small cystic area within what appears to be decidual reaction. This could represent a very small gestational sac, recommend repeat study in 11 days to further evaluate. 2. Other findings as noted above believed to be incidental. Diagnostic code #3 I agree with preliminary report from [facility], finalized at 09/06/17, 1:15 AM Central Time
== END 2017-09-06 01:04 | disposition home or self-care (01) ==
LOC: JD.ED 21:06
DX: O20.0 Threatened abortion (principal); Z88.1 Allergy status to other antibiotic agents; Z88.0 Allergy status to penicillin; Z79.899 Other long term (current) drug therapy; Z3A.01 Less than 8 weeks gestation of pregnancy
CPT/HCPCS: 36415; 76817; 76817-26; 84702; 85025; 99283; 99284-25

== ENCOUNTER 2018-06-15 21:27 | Emergency (ER) | payer MEDICAID ==
[2018-06-15 21:41] VITALS: BP 117/73
--- NOTE | 2018-06-15 21:49 | EDM.PDOC ---
ED HPI GENERAL MEDICAL PROBLEM - General Chief Complaint: ENT Problem Stated Complaint: TOOTH PAIN/ABCESS Time Seen by Provider: 06/15/18 21:32 Source of Information: Reports: Patient History Limitations: Reports: No Limitations - History of Present Illness INITIAL COMMENTS - FREE TEXT/NARRATIVE: 22 y/o female presents to ER with cc right lower dental pain for the past 6 days. She states she has been taking Ibuprofen for the pain. She reports it doesn't really work. She reports the pain increases with eating. She does not have a dentist at this time. She denies fever, chills, facial swelling, difficulty swallowing or chewing. 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 Right Jaw Pain Score (Numeric/FACES): 6 - Related Data Allergies Allergy/AdvReac Type Severity Reaction Status Date / Time amoxicillin [From Trimox] Allergy Hives Verified 06/15/18 21:33 Penicillins Allergy Hives Verified 06/15/18 21:33 Home Meds: Home Meds Cholecalciferol (Vitamin D3) [Vitamin D] 10,000 units PO DAILY 06/15/18 [History ] Docosahexanoic Acid [ Dha] 200 mg PO DAILY 06/15/18 [History] Loratadine/Pseudoephedrine [Claritin-D 24 Hour Tablet] 1 each PO DAILY PRN 06/15 [History] Oxymetazoline HCl [Sinus Relief] 1 tab PO DAILY PRN 06/15/18 [History] metFORMIN HCl [Metformin HCl] 1,000 mg PO BID 06/15/18 [History] Past Medical History HEENT History: Reports: Sinusitis Other HEENT History: oral surgery Cardiovascular History: Reports: None Respiratory History: Reports: None Gastrointestinal History: Reports: None Genitourinary History: Reports: None 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: Reports: Polycystic Ovaries, Other 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: abnormal menses Musculoskeletal History: Reports: Back Pain, Chronic Neurological History: Reports: None Psychiatric History: Reports: Depression Endocrine/Metabolic History: Reports: None Hematologic History: Reports: None Immunologic History: Reports: None Oncologic (Cancer) History: Reports: None Dermatologic History: Reports: Other (See Below) Other Dermatologic History: impetigo - Past Surgical History Head Surgeries/Procedures: Reports: None HEENT Surgical History: Reports: Oral Surgery Female Surgical History: Reports: None Social & Family History - Family History Family Medical History: Noncontributory - Caffeine Use Caffeine Use: Reports: Coffee, Tea - Living Situation & Occupation Living situation: Reports: Occupation: Employed ED ROS ENT - Review of Systems Review Of Systems: See Below Constitutional: Denies: Fever, Chills HEENT: Reports: Other (right lower dental pain) Respiratory: Reports: No Symptoms Cardiovascular: Reports: No Symptoms Endocrine: Reports: No Symptoms GI/Abdominal: Reports: No Symptoms : Reports: No Symptoms Musculoskeletal: Reports: No Symptoms Skin: Reports: No Symptoms Neurological: Reports: No Symptoms Psychiatric: Reports: No Symptoms Hematologic/Lymphatic: Reports: No Symptoms Immunologic: Reports: No Symptoms ED EXAM, ENT - Physical Exam Exam: See Below Exam Limited By: No Limitations General Appearance: Alert, WD/WN, No Apparent Distress Mouth/Throat: Normal Inspection, Normal Gums, Normal Lips, Normal Oropharynx, Normal Teeth, Dental Pain, Other (right lower dental pain tooth number 31 and 32 , no erythema, tenderness, swelling noted. ). No: Dental Abcess Neck: Normal Inspection, Supple, Non-Tender Respiratory/Chest: No Respiratory Distress, Lungs Clear, Normal Breath Sounds, No Accessory Muscle Use, Chest Non-Tender Cardiovascular: Normal Peripheral Pulses, Regular Rate, Rhythm, No Edema, No Gallop, No JVD, No Murmur, No Rub Neurological: Alert, Oriented, Normal Cognition, Normal Gait, Normal Reflexes, No Motor/Sensory Deficits Psychiatric: Normal Affect, Normal Mood Skin: Warm, Dry, Intact, Normal Color, No Rash Lymphatic: No Adenopathy Course - Vital Signs Text/Narrative:: 22 y/o female presents to ER with cc dental pain for the past 6 days. Her examination revealed no signs of infection or abscess. I will discharge home with instructions to follow up with dentist. Instructed to return ER for any new or acute worsening symptoms. Last Recorded V/S: Last Vital Signs Temp 97.6 F 06/15/18 21:37 Pulse 86 06/15/18 21:37 Resp 20 06/15/18 21:37 BP 117/73 06/15/18 21:37 Pulse Ox 99 06/15/18 21:37 Departure - Departure Time of Disposition: 21:49 Disposition: Home, Self-Care 01 Condition: Good Clinical Impression: Pain, dental - Discharge Information *PRESCRIPTION DRUG MONITORING PROGRAM REVIEWED*: Not Applicable *COPY OF PRESCRIPTION DRUG MONITORING REPORT IN PATIENT RICKEY: Not Applicable Instructions: Diet and Dental Disease Referrals: Adarsh Aguila PA [Primary Care Provider] - Additional Instructions: You have been diagnosis with dental pain. You may take Ibuprofen 800 mg every 8 hours as needed for pain. You may use ice 20 minutes at a time. You have been provided with a list of dentist in the area. Contact one for follow up appointment. Return to the ER for any new or acute worsening symptoms.
== END 2018-06-15 22:00 | disposition home or self-care (01) ==
LOC: JD.ED 21:27
DX: K08.89 Other specified disorders of teeth and supporting structures (principal); Z88.1 Allergy status to other antibiotic agents; Z88.0 Allergy status to penicillin; Z79.899 Other long term (current) drug therapy; Z79.84 Long term (current) use of oral hypoglycemic drugs
CPT/HCPCS: 99282

== ENCOUNTER 2018-08-25 19:27 | Emergency (ER) | payer MEDICAID ==
[2018-08-25 19:47] VITALS: BP 111/72
--- NOTE | 2018-08-25 20:09 | EDM.PDOC ---
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 The patient notes that she is around 9 weeks . She is a patient of Dr. Mancera. She states that the cramping started at around 3 PM this afternoon, she was in contact with Dr. tSaley's office and his nurse told her to rest and drink some water and take some Tylenol. The patient states that she got home and took the Tylenol and started drinking water, the cramps got better for some time but did come back, and this made her come to the ER for evaluation. The patient notes a history of 2 other spontaneous early abortions at roughly 4 weeks and 5 weeks. The patient has had her initial OB visit, and it did demonstrate an intrauterine , and her last hCG level was 11,500 on August 08. The patient states that she has been having some sharp pains in her right lower quadrant and left lower quadrant as well. The patient denies any abdominal surgeries this time. She denies any vaginal bleeding or discharge, but notes a history of PCOS. She further denies any dysuria, or urinary frequency or urgency. 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 Lower Abdomen Pain Score (Numeric/FACES): 5 - Related Data Allergies Allergy/AdvReac Type Severity Reaction Status Date / Time amoxicillin [From Trimox] Allergy Hives Verified 08/25/18 19:35 Penicillins Allergy Hives Verified 08/25/18 19:35 Home Meds: Home Meds Cholecalciferol (Vitamin D3) [Vitamin D] 10,000 units PO DAILY 06/15/18 [History ] Docosahexanoic Acid [ Dha] 200 mg PO DAILY 06/15/18 [History] Loratadine/Pseudoephedrine [Claritin-D 24 Hour Tablet] 1 each PO DAILY PRN 06/15 [History] metFORMIN HCl [Metformin HCl] 1,000 mg PO BID 06/15/18 [History] Past Medical History HEENT History: Reports: Sinusitis Other HEENT History: oral surgery Cardiovascular History: Reports: None Respiratory History: Reports: None, Other (See Below) Other Respiratory History: seasonal allergies Gastrointestinal History: Reports: Cholelithiasis Genitourinary History: Reports: UTI, Recurrent 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 Musculoskeletal History: Reports: Back Pain, Chronic Neurological History: Reports: None Psychiatric History: Reports: Depression Endocrine/Metabolic History: Reports: None Hematologic History: Reports: None Immunologic History: Reports: None Oncologic (Cancer) History: Reports: None Dermatologic History: Reports: Other (See Below) Other Dermatologic History: impetigo - Infectious Disease History Infectious Disease History: Reports: None - Past Surgical History Head Surgeries/Procedures: Reports: None HEENT Surgical History: Reports: Oral Surgery GI Surgical History: Reports: Cholecystectomy Female Surgical History: Reports: None Social & Family History - Family History Family Medical History: Noncontributory - Tobacco Use Smoking Status *Q: Former Smoker Used Tobacco, but Quit: Yes Month/Year Tobacco Last Used: 01/2017 - Caffeine Use Caffeine Use: Reports: Coffee, Soda - Recreational Drug Use Recreational Drug Use: No - Living Situation & Occupation Living situation: Reports: Occupation: Employed ED ROS GENERAL - Review of Systems Review Of Systems: See Below Constitutional: Reports: No Symptoms HEENT: Reports: No Symptoms Respiratory: Reports: No Symptoms Cardiovascular: Reports: No Symptoms Endocrine: Reports: No Symptoms GI/Abdominal: Reports: Abdominal Pain (lower abdomen cramping) : Reports: Pain (lower abd cramping). Denies: Discharge, Dysuria, Flank Pain , Frequency, Urgency Musculoskeletal: Reports: No Symptoms Skin: Reports: No Symptoms Neurological: Reports: No Symptoms Psychiatric: Reports: No Symptoms Hematologic/Lymphatic: Reports: No Symptoms ED EXAM - Physical Exam Exam: See Below Exam Limited By: No Limitations General Appearance: Alert, WD/WN, No Apparent Distress Respiratory/Chest: No Respiratory Distress, Lungs Clear, Normal Breath Sounds, No Accessory Muscle Use, Chest Non-Tender Cardiovascular: Normal Peripheral Pulses, Regular Rate, Rhythm, No Murmur GI/Abdominal Exam: Normal Bowel Sounds, Soft, Non-Tender, No Distention Heart Tones: Not [place] Movement: Not Appreciated Extremities: Normal Inspection, Normal Capillary Refill Neurological: Alert, Oriented, Normal Cognition, No Motor/Sensory Deficits Psychiatric: Normal Affect, Normal Mood Skin Exam: Warm, Dry, Intact, Normal Color, No Rash Course - Vital Signs Last Recorded V/S: Last Vital Signs Temp 98.2 F 08/25/18 19:40 Pulse 68 08/25/18 19:40 Resp 14 08/25/18 19:40 BP 111/72 08/25/18 19:40 Pulse Ox 100 08/25/18 19:40 - Orders/Labs/Meds Labs: Laboratory Tests 08/25/18 08/25/18 08/25/18 Range/Units 20:00 20:59 20:59 WBC 13.53 H (3.98-10.04) K/mm3 RBC 4.51 (3.98-5.22) M/mm3 Hgb 13.5 (11.2-15.7) gm/L Hct 39.3 (34.1-44.9) % MCV 87.1 (79.4-94.8) fl MCH 29.9 (25.6-32.2) pg MCHC 34.4 (32.2-35.5) g/dl RDW Std Deviation 39.9 (36.4-46.3) fL Plt Count 210 D (182-369) K/mm3 MPV 11.0 (9.4-12.3) fl Neut % (Auto) 67.5 (34.0-71.1) % Lymph % (Auto) 21.6 (19.3-51.7) % [place] % (Auto) 6.9 (4.7-12.5) % Eos % (Auto) 3.1 (0.7-5.8) Baso % (Auto) 0.2 (0.1-1.2) % Neut # (Auto) 9.14 H (1.56-6.13) K/mm3 Lymph # (Auto) 2.92 (1.18-3.74) K/mm3 [place] # (Auto) 0.93 H (0.24-0.36) K/mm3 Eos # (Auto) 0.42 H (0.04-0.36) K/mm3 Baso # (Auto) 0.03 (0.01-0.08) K/mm3 HCG, Quant 948242.0 mIU/mL Urine Color Yellow (Yellow) Urine Appearance Slt cloudy H (Clear) Urine pH 6.5 (5.0-8.0) Ur Specific [place] 1.025 (1.005-1.030) Urine Protein Negative (Negative) Urine Glucose (UA) Negative (Negative) Urine Ketones 1+ H (Negative) Urine Occult Blood Trace-intact H (Negative) Urine Nitrite Negative (Negative) Urine Bilirubin Negative (Negative) Urine Urobilinogen 0.2 (0.2-1.0) Ur Leukocyte Esterase Negative (Negative) Urine RBC 0-5 (0-5) /hpf Urine WBC 0-5 (0-5) /hpf Ur Squamous Epith Cells 0-5 (0-5) /hpf Urine Bacteria Few (FEW) /hpf Urine Mucus Moderate H (FEW) /hpf Blood Type 08/25/18 Range/Units 20:59 WBC (3.98-10.04) K/mm3 RBC (3.98-5.22) M/mm3 Hgb (11.2-15.7) gm/L Hct (34.1-44.9) % MCV (79.4-94.8) fl MCH (25.6-32.2) pg MCHC (32.2-35.5) g/dl RDW Std Deviation (36.4-46.3) fL Plt Count (182-369) K/mm3 MPV (9.4-12.3) fl Neut % (Auto) (34.0-71.1) % Lymph % (Auto) (19.3-51.7) % [place] % (Auto) (4.7-12.5) % Eos % (Auto) (0.7-5.8) Baso % (Auto) (0.1-1.2) % Neut # (Auto) (1.56-6.13) K/mm3 Lymph # (Auto) (1.18-3.74) K/mm3 [place] # (Auto) (0.24-0.36) K/mm3 Eos # (Auto) (0.04-0.36) K/mm3 Baso # (Auto) (0.01-0.08) K/mm3 HCG, Quant mIU/mL Urine Color (Yellow) Urine Appearance (Clear) Urine pH (5.0-8.0) Ur Specific [place] (1.005-1.030) Urine Protein (Negative) Urine Glucose (UA) (Negative) Urine Ketones (Negative) Urine Occult Blood (Negative) Urine Nitrite (Negative) Urine Bilirubin (Negative) Urine Urobilinogen (0.2-1.0) Ur Leukocyte Esterase (Negative) Urine RBC (0-5) /hpf Urine WBC (0-5) /hpf Ur Squamous Epith Cells (0-5) /hpf Urine Bacteria (FEW) /hpf Urine Mucus (FEW) /hpf Blood Type O POSITIVE - Re-Assessments/Exams Free Text/Narrative Re-Assessment/Exam: 08/25/18 20:07 Patient presents to the ED for the evaluation of cramping during . Have ordered transvaginal ultrasound for evaluation of health, she is not having any bleeding at this time. I have also ordered a CBC and a UA with a quantitative hCG to make sure that her level is rising appropriately. 08/25/18 21:31 Patient's ultrasound is done, and demonstrates a gestational age of 8 weeks 4 days, with expected due date of 04/02/19. Single intrauterine gestation is seen. Amniotic fluid volume appears normal. Embryo is seen. No subchorionic hemorrhage is identified. Heart rate is 173 bpm. Patient's lab work is done and does not demonstrate any sort of UTI at this time, quantitative hCG is still pending at this time. Her white count is slightly elevated at 13,000 which is likely just a stress response. 08/25/18 22:00 HCG Quant is 138,174. Pt will be discharged home with general conservative recommendations. Departure - Departure Time of Disposition: 22:01 Disposition: Home, Self-Care 01 Condition: Fair Clinical Impression: Pelvic cramping - Discharge Information *PRESCRIPTION DRUG MONITORING PROGRAM REVIEWED*: No *COPY OF PRESCRIPTION DRUG MONITORING REPORT IN PATIENT RICKEY: No Instructions: Round Ligament Pain, Pelvic Pain, Female, [id number] Referrals: Marin Staley MD [Primary Care Provider] - Forms: ED Department Discharge Additional Instructions: You have been evaluated in the ED today for your pelvic cramping. Your ultrasound was within normal limits, and was dated at 8 weeks 3 days gestation, the baby's heart rate was 173 bpm. There did not appear to be any bleeding or leaking of amniotic fluids from the sac, everything was within normal limits. Your hCG quantitative level was 138,174 at today's visit. Recommend that you take Tylenol for further cramping every 6 hours as needed. Follow up with your OB provider as needed. If you should develop increasing pelvic cramping with bleeding, please do not hesitate return to the ER. Please return to the ER if your symptoms should change or worsen.
--- NOTE | 2018-08-25 21:24 | US ---
First trimester obstetrical ultrasound: Multiple real-time images were obtained and vaginally. Comparison: No previous study for current . Dates: LMP: LMP given as 06/23/18, KRAIG 03/30/19, gestational age 9 weeks 0 days Current ultrasound: KRAIG 04/02/19, gestational age 8 weeks 4 days Single intrauterine gestation is seen. Amniotic fluid volume appears normal. Embryo is seen. No subchorionic hemorrhage is identified. Maternal ovaries appear within normal limits. Measurements: [place]-rump length: 1.96 cm - 8 weeks 4 days Gestational sac: 3.40 cm - 8 weeks 4 days Heart rate: 173 BPM Impression: 1. Single intrauterine gestation. Dates as noted above. 2. No complicating process is seen by ultrasound at this time. Diagnostic code #1
== END 2018-08-25 22:16 | disposition home or self-care (01) ==
LOC: JD.ED 19:27
DX: O99.89 Other specified diseases and conditions complicating pregnancy, childbirth and the puerperium (principal); R10.2 Pelvic and perineal pain; Z98.890 Other specified postprocedural states; Z90.49 Acquired absence of other specified parts of digestive tract; Z88.0 Allergy status to penicillin; Z88.1 Allergy status to other antibiotic agents; Z87.891 Personal history of nicotine dependence; Z3A.09 9 weeks gestation of pregnancy
CPT/HCPCS: 36415; 76817; 76817-26; 81001; 84702; 85025; 86900; 86901; 99282; 99284-25

== ENCOUNTER 2019-03-23 07:19 | Inpatient (IN) | payer MEDICAID ==
[2019-03-23] MEDS ORDERED: Sodium Chloride 0.9% 10 ML Syringe FLUSH PRN (07:57)
[2019-03-23] MEDS ORDERED: Acetaminophen 325 MG Tab PO PRN (07:57)
[2019-03-23] MEDS ORDERED: Nalbuphine 10 MG/ML Syringe IVPUSH PRN (07:57)
[2019-03-23] MEDS ORDERED: Misoprostol 25 MCG (1/4 of 100 MCG) Tab ONE (07:59)
[2019-03-23] MEDS ORDERED: Oxytocin/Lactated Ringers 10 UNIT/1,000 ML BAG IV SCH (08:00)
[2019-03-23] MEDS: Misoprostol 25 MCG (1/4 of 100 MCG) Tab VAG PRN ×2 (08:00→12:07)
--- NOTE | 2019-03-23 08:12 | PCM.LDHP ---
L&D History of Present Illness - General Date of Service: 03/23/19 Admit Problem/Dx: Patient Status Order with Admit Dx/Problem 03/23/19 07:57 Patient Status [ADT] Routine Admission Diagnosis/Problem Admission Diagnosis/Problem 39 weeks gestation of Source of Information: Patient History Limitations: Reports: No Limitations - History of Present Illness Introduction:: Lorena Causey is a 23 year old female at 39 weeks 0 days (KRAIG 03/30/2019 ) by LMP consistent with a 6-week ultrasound who presents for elective induction of labor. She states that has been going well since her visit on 03/16/2019. She is continuing to have irregular contractions with 1 every hour to several per hour depending on how active she is. Contractions are less frequent when she is resting. She denies any leaking of fluid or vaginal bleeding. Reports that baby has been moving well. Present Illness Comments:: Lorena Causey is a 23-year-old -0-2-0 at 39 weeks 0 days (KRAIG 03/30/2019) by LMP consistent with 6-week ultrasound who presents for elective induction of labor. She has had routine care with myself starting at 6 weeks gestational age. Her has been overall uncomplicated. She received Tdap and flu vaccine on 01/05/2019. She did have labor symptoms around 34 weeks gestational age and had a GBS swab that was negative at that time. She did not have ongoing contractions after that evaluation and no additional cervical dilation. Her is complicated by: * Polycystic ovarian syndrome * Anxiety and depression not requiring medications * Gastroesophageal reflux and * Seborrheic dermatitis but has not had any significant outbreaks during * History of tobacco use but quit in January 2017 labs Blood type: O+ Antibody screen: Negative First trimester hematocrit/hemoglobin: 40.8%/14.0 on 09/06/2018 Platelets: 366 on 09/06/2018 Urine culture: Mixed candis suggestive of contamination Rubella status: Immune Hepatitis B surface antigen: Negative RPR: Negative HIV: Negative Gonorrhea: Negative Chlamydia: Negative Genetic testing: Normal genetic testing with low risk for trisomy or sex chromosomal abnormalities anatomy ultrasound: Normal anatomy without any abnormalities with kidneys and spine not well visualized on initial exam but normal-appearing on subsequent exam approximately 4 weeks later. EFW the 23rd to the 40th percentile on various ultrasounds. Anterior placenta. 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 Musculoskeletal History: Reports: Back Pain, Chronic Neurological History: Reports: None Psychiatric History: Reports: Depression Endocrine/Metabolic History: Reports: None Hematologic History: Reports: None Immunologic History: Reports: None Oncologic (Cancer) History: Reports: None Dermatologic History: Reports: Other (See Below) Other Dermatologic History: impetigo - Infectious Disease History Infectious Disease History: Reports: None - Past Surgical History Head Surgeries/Procedures: Reports: None HEENT Surgical History: Reports: Oral Surgery GI Surgical History: Reports: Cholecystectomy Female Surgical History: Reports: None Social & Family History - Family History Family Medical History: Noncontributory - Tobacco Use Smoking Status *Q: Former Smoker Tobacco Use Within Last Twelve Months: No - Tobacco Core Measures Tobacco Use/Smoking Within Last 30 Days: No Smokeless Tobacco Use in Last 30 Days: No - Caffeine Use Caffeine Use: Reports: Tea, Other Other Caffeine Use: decaff tea - Alcohol Use Alcohol Use History: No - Recreational Drug Use Recreational Drug Use: No Drug Use in Last 12 Months: No - Living Situation & Occupation Living situation: Reports: , with Spouse Occupation: Employed H&P Review of Systems - Review of Systems: Review Of Systems: See Below General: Denies: Fever, Chills, Malaise, Weakness, Fatigue HEENT: Reports: Sinus Congestion. Denies: Dysphasia, Headaches, Rhinitis, Post Nasal Drip, Sore Throat, Visual Changes Pulmonary: Denies: Shortness of Breath, Wheezing, Pleuritic Chest Pain, Cough Cardiovascular: Denies: Chest Pain, Palpitations, Dyspnea on Exertion, Orthopnea Gastrointestinal: Reports: Constipation, Diarrhea. Denies: Abdominal Pain, Nausea, Vomiting Genitourinary: Denies: Dysuria, Frequency, Burning, Pain, Urgency Musculoskeletal: Reports: Back Pain (And hip pain of ) Skin: Denies: Rash, Lesions Psychiatric: Denies: Depression, Anxiety Neurological: Denies: Headache Hematologic/Lymphatic: Denies: Anemia L&D Exam - Exam Exam: See Below - Vital Signs Vital Signs: Last Vital Signs Temp 36.4 C 03/23/19 07:32 Pulse 106 H 03/23/19 07:32 Resp 16 03/23/19 07:32 BP 118/82 03/23/19 07:32 Pulse Ox 100 03/23/19 07:32 Weight: 84.051 kg - OB Specific Contraction Duration (sec): 30-45 Contraction Frequency (min): 5-8 Contraction Intensity: Mild to Moderate Movement: Active Heart Tones: Present Heart Tones per Min: 140 (+15 x 15 accelerations, no decelerations) Heart Rate (FHR) Variability: Moderate (6-25 bmp) Presentation: Vertex Estimated Weight: 7-7.5 lbs by [place] - Mario Score Mario Score Cervix Position: Midposition Mario Score Consistency: Medium Mario Score Effacement: 31-50% (40%) Mario Score Dilation: 1-2 cm (1.5 cm) Mario Score 's Station: -3 Mario Score Total: 4 - Exam General: Alert, Oriented HEENT: Conjunctiva Clear, EOMI Neck: Supple, Trachea Midline Lungs: Clear to Auscultation, Normal Respiratory Effort Cardiovascular: Regular Rate, Regular Rhythm GI/Abdominal Exam: Soft, Non-Tender, No Distention, Other (Gravid). No: Guarding, Rigid, Rebound Genitourinary: Normal external exam, Other (16 Filipino Madsen bulb placed transcervically using speculum and ring forceps. Madsen bulb balloon was filled with 50 mL of sterile saline. Mother and infant tolerated procedure without difficulty.) Skin: Warm, Dry, Intact Psychiatric: Alert, Normal Affect, Normal Mood - Problem List (1) 39 weeks gestation of SNOMED Code(s): 00209952 ICD Code: Z3A.39 - 39 WEEKS GESTATION OF Status: Acute Current Visit: Yes (2) Polycystic ovary syndrome SNOMED Code(s): 047057006 ICD Code: E28.2 - POLYCYSTIC OVARIAN SYNDROME Status: Acute Current Visit : Yes (3) Depression SNOMED Code(s): 31110929 ICD Code: F32.9 - MAJOR DEPRESSIVE DISORDER, SINGLE EPISODE, UNSPECIFIED Status: Acute Current Visit: Yes (4) Gastroesophageal reflux in SNOMED Code(s): 02288680861590842 ICD Code: O99.619 - DISEASES OF THE DGSTV SYS COMP , UNSP TRIMESTER ; K21.9 - GASTRO-ESOPHAGEAL REFLUX DISEASE WITHOUT ESOPHAGITIS Status: Acute Current Visit: Yes Problem List Initiated/Reviewed/Updated: Yes Orders Last 24hrs: Active Orders 24 hr Category Date Time Status Patient Status [ADT] Routine ADT 03/23/19 07:57 Ordered Activity as Tolerated [RC] PFP Care 03/23/19 07:57 Ordered Communication Order [RC] ASDIRECTED Care 03/23/19 07:57 Ordered Communication Order [RC] ASDIRECTED Care 03/23/19 07:57 Ordered Communication Order [RC] ASDIRECTED Care 03/23/19 07:57 Ordered Communication Order [RC] ASDIRECTED Care 03/23/19 07:57 Ordered Heart Tones [RC] ASDIRECTED Care 03/23/19 07:58 Ordered Monitoring [RC] INTERMITTENT Care 03/23/19 07:57 Ordered Non Stress Test [RC] PER UNIT ROUTINE Care 03/23/19 07:57 Ordered Notify Provider Vital Signs [RC] PRN Care 03/23/19 07:59 Ordered Notify Provider [RC] ASDIRECTED Care 03/23/19 07:57 Ordered Notify Provider [RC] ASDIRECTED Care 03/23/19 07:58 Ordered Notify Provider [RC] PFP Care 03/23/19 07:57 Ordered Notify Provider [RC] PRN Care 03/23/19 07:57 Ordered Peripheral IV Care [RC] . DIRECTED Care 03/23/19 08:00 Ordered Pump Management, Intrathecal [RC] ASDIRECTED Care 03/23/19 07:59 Ordered Up ad [place] [RC] ASDIRECTED Care 03/23/19 07:58 Ordered Urinary Catheter Assessment [RC] ASDIRECTED Care 03/23/19 07:57 Ordered Vaginal Exam [RC] ASDIRECTED Care 03/23/19 07:57 Ordered Vital Signs [RC] ASDIRECTED Care 03/23/19 07:57 Ordered Vital Signs [RC] PER UNIT ROUTINE Care 03/23/19 07:57 Ordered Regular Diet [DIET] Diet 03/23/19 Breakfast Ordered CBC WITH AUTO DIFF [HEME] Routine Lab 03/23/19 07:57 Ordered RAPID PLASMA REAGIN,RPR [CHEM] Routine Lab 03/23/19 07:57 Ordered Acetaminophen [Tylenol] Med 03/23/19 07:57 Ordered 650 mg PO Q6H PRN Lactated Ringers [Ringers, Lactated] 1,000 ml Med 03/23/19 08:00 Ordered IV ASDIRECTED Nalbuphine [Nubain] Med 03/23/19 07:57 Ordered 10 mg IVPUSH Q2H PRN Oxytocin/Lactated Ringers [Pitocin in LR 10 Units/1,000 Med 03/23/19 08:00 Ordered ML] 10 unit in 1,000 ml IV .CONTINUOUS Sodium Chloride 0.9% [Saline Flush] Med 03/23/19 07:57 Ordered 10 ml FLUSH ASDIRECTED PRN miSOPROStoL [Cytotec] Med 03/23/19 07:57 Ordered 25 mcg VAG Q4H PRN Electronic Heart Tones Ext w TOCO [WOMSER] Oth 03/23/19 07:57 Ordered Routine Electronic Heart Tones Internal [WOMSER] Per Unit Oth 03/23/19 07:57 Ordered Routine Medication Administration Instruction [OM.PC] Oth 03/23/19 08:00 Ordered ASDIRECTED Peripheral IV Insertion Adult [OM.PC] Routine Oth 03/23/19 07:57 Ordered Resuscitation Status Routine Resus Stat 03/23/19 07:57 Ordered Medication Orders Acetaminophen (Tylenol) 650 mg PO Q6H PRN PRN Reason: Pain (Mild 1-3) and fever Lactated Ringer's (Ringers, Lactated) 1,000 mls @ 100 mls/hr IV ASDIRECTED FIDEL Oxytocin/Lactated Ringer's (Pitocin In Lr 10 Units/1,000 Ml) 10 unit in 1,000 mls @ 100 mls/hr IV .CONTINUOUS FIDEL; Protocol Misoprostol (Cytotec) 25 mcg VAG Q4H PRN PRN Reason: cervical ripening Nalbuphine HCl (Nubain) 10 mg IVPUSH Q2H PRN PRN Reason: Pain Assessment/Plan Comment:: Refer to observation for elective induction of labor 16 [place] Madsen bulb placed transcervically using ring forceps with speculum exam. Madsen balloon was filled with 50 mL of sterile saline. Mother and tolerated procedure without difficulty. Start induction of labor with Cytotec 25 mcg vaginally now and every 4 hours Intermittent monitoring while on Cytotec with monitoring for 30 minutes after placement of Cytotec and may ambulate as tolerated with category [address] IV and have Lactated Ringer's at 125 ml/hr if not tolerating regular diet May have regular diet while on Cytotec induction Activity as tolerated May have epidural as desired Plans to breast-feed after delivery Anticipate vaginal delivery unless otherwise indicated Marin Staley MD 8:21 AM 03/23/2019
--- NOTE | 2019-03-23 08:52 | PCM.PREANE ---
Preanesthetic Assessment - Procedure Proposed Procedure: Epidural - Anesthesia/Transfusion/Family Hx Anesthesia History: Prior Anesthesia Without Reaction Family History of Anesthesia Reaction: No Transfusion History: No Prior Transfusion(s) - Review of Systems General: No Symptoms Pulmonary: No Symptoms Cardiovascular: No Symptoms Gastrointestinal: No Symptoms Neurological: No Symptoms Other: Reports: None - Physical Assessment Vital Signs: Last Vital Signs Temp 36.4 C 03/23/19 07:32 Pulse 106 H 03/23/19 07:32 Resp 16 03/23/19 07:32 BP 118/82 03/23/19 07:32 Pulse Ox 100 03/23/19 07:32 Height: 1.6 m Weight: 84.051 kg ASA Class: 2 Mental Status: Alert & Oriented x3 Airway Class: Mallampati = 1 Dentition: Reports: Normal Dentition Thyro-Mental Finger Breadths: 3 Mouth Opening Finger Breadths: 3 ROM/Head Extension: Full Lungs: Clear to Auscultation, Normal Respiratory Effort Cardiovascular: Regular Rate, Regular Rhythm - Allergies Allergies/Adverse Reactions: Allergies Allergy/AdvReac Type Severity Reaction Status Date / Time amoxicillin [From Trimox] Allergy Hives Verified 02/20/19 06:33 Penicillins Allergy Hives Verified 02/20/19 06:33 - Anesthesia Plan Pre-Op Medication Ordered: None - Acknowledgements Anesthesia Type Planned: Epidural Pt an Appropriate Candidate for the Planned Anesthesia: Yes Alternatives and Risks of Anesthesia Discussed w Pt/Guardian: Yes Pt/Guardian Understands and Agrees with Anesthesia Plan: Yes PreAnesthesia Questionnaire HEENT History: Reports: Sinusitis Other HEENT History: oral surgery Cardiovascular History: Reports: None Respiratory History: Reports: None, Other (See Below) Other Respiratory History: seasonal allergies Gastrointestinal History: Reports: Cholelithiasis (History of), GERD Genitourinary History: Reports: UTI, Recurrent 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 Musculoskeletal History: Reports: Back Pain, Chronic Neurological History: Reports: None Psychiatric History: Reports: Depression Endocrine/Metabolic History: Reports: None Hematologic History: Reports: None Immunologic History: Reports: None Oncologic (Cancer) History: Reports: None Dermatologic History: Reports: Other (See Below) Other Dermatologic History: impetigo - Infectious Disease History Infectious Disease History: Reports: None - Past Surgical History Head Surgeries/Procedures: Reports: None HEENT Surgical History: Reports: Oral Surgery GI Surgical History: Reports: Cholecystectomy Female Surgical History: Reports: None - SUBSTANCE USE Smoking Status *Q: Former Smoker Tobacco Use Within Last Twelve Months: No Second Hand Smoke Exposure: No Days Per Week of Alcohol Use: 0 Number of Drinks Per Day: 0 Total Drinks Per Week: 0 Recreational Drug Use History: No - HOME MEDS Home Medications: Home Meds . [No Known Home Meds] 03/23/19 [History] - CURRENT (IN HOUSE) MEDS Current Meds: Current Medications Acetaminophen (Tylenol) 650 mg PO Q6H PRN PRN Reason: Pain (Mild 1-3) and fever Lactated Ringer's (Ringers, Lactated) 1,000 mls @ 100 mls/hr IV ASDIRECTED FIDEL Oxytocin/Lactated Ringer's (Pitocin In Lr 10 Units/1,000 Ml) 10 unit in 1,000 mls @ 100 mls/hr IV .CONTINUOUS FIDEL; Protocol Misoprostol (Cytotec) 25 mcg VAG Q4H PRN PRN Reason: cervical ripening Last Admin: 03/23/19 08:00 Dose: 25 mcg Nalbuphine HCl (Nubain) 10 mg IVPUSH Q2H PRN PRN Reason: Pain Sodium Chloride (Saline Flush) 10 ml FLUSH ASDIRECTED PRN PRN Reason: Keep Vein Open Discontinued Medications Misoprostol (Cytotec) Confirm Administered Dose 25 mcg .ROUTE .STK-MED ONE Stop: 03/23/19 08:00 Last Admin: 03/23/19 08:06 Dose: Not Given
[2019-03-23] MEDS ORDERED: ePHEDrine 50 MG/ML SDV IVPUSH PRN (08:53)
[2019-03-23] MEDS ORDERED: diphenhydrAMINE 50 MG/ML SDV IVPUSH PRN (08:53)
[2019-03-23] MEDS ORDERED: fentaNYL 100 MCG/2 ML SDV EPIDUR PRN (08:53)
--- NOTE | 2019-03-23 13:25 | PCM.PNLD ---
Labor Progress Note - VS & Meds Vital Signs: Last Vital Signs Temp 36.4 C 03/23/19 07:32 Pulse 106 H 03/23/19 07:32 Resp 16 03/23/19 07:32 BP 118/82 03/23/19 07:32 Pulse Ox 100 03/23/19 07:32 Active Medications: Current Medications Acetaminophen (Tylenol) 650 mg PO Q6H PRN PRN Reason: Pain (Mild 1-3) and fever Diphenhydramine HCl (Benadryl) 25 mg IVPUSH Q6H PRN PRN Reason: Itching Ephedrine Sulfate (Ephedrine Sulfate) 5 mg IVPUSH ASDIRECTED PRN PRN Reason: HYPOTENTSION Fentanyl (Sublimaze) 100 mcg EPIDUR Q3H PRN PRN Reason: Pain Fentanyl/Bupivacaine HCl (Fentanyl/Bupivacaine/Ns 2 Mcg-0.125% 250 Ml) 250 ml EPIDUR CONTINUOUS PRN PRN Reason: Pain Lactated Ringer's (Ringers, Lactated) 1,000 mls @ 100 mls/hr IV ASDIRECTED FIDEL Oxytocin/Lactated Ringer's (Pitocin In Lr 10 Units/1,000 Ml) 10 unit in 1,000 mls @ 100 mls/hr IV .CONTINUOUS FIDEL; Protocol Misoprostol (Cytotec) 25 mcg VAG Q4H PRN PRN Reason: cervical ripening Last Admin: 03/23/19 12:07 Dose: 25 mcg Nalbuphine HCl (Nubain) 10 mg IVPUSH Q2H PRN PRN Reason: Pain Sodium Chloride (Saline Flush) 10 ml FLUSH ASDIRECTED PRN PRN Reason: Keep Vein Open Discontinued Medications Misoprostol (Cytotec) Confirm Administered Dose 25 mcg .ROUTE .STK-MED ONE Stop: 03/23/19 08:00 Last Admin: 03/23/19 08:06 Dose: Not Given - Uterine Contractions Uterine Monitoring Mode: External [place] Contraction Frequency (min): 2-3 Contraction Duration (sec): 45-60 Contraction Intensity: Moderate to Strong Uterine Resting Tone: Soft - Monitoring Monitor Mode: Doppler/Auscultation Heart Rate (FHR) Baseline: 140 Heart Rate (FHR) Per Doppler: 140 Heart Rate (FHR) Variability: Moderate (6-25 bmp) Accelerations: Present, 15x15 Decelerations: None Strip Review: Category I - Vaginal Exam Dilation (cm): 5 cm Effacement (Percent): 80 Station: -3 Cervical Position: Anterior Sterile Vaginal Exam Performed By: Marin Staley Vaginal Exam Comment: Madsen bulb able to be removed without difficulty. Small amount of bloody discharge noted within the Madsen catheter and on glove on exam. Amniotic sac intact. Mother and infant tolerated removal without difficulty. - Labor Progress (Free Text) Labor Progress: Patient doing well at this time No significant concerns Continue with Cytotec induction at this time until she is 4 hours after her last dose then we will transition to Pitocin Continue routine vitals Continue intermittent monitoring Patient may have regular diet as tolerated We will plan for artificial rupture of membranes once the head is more well applied to the cervix Patient may have epidural for anesthesia as desired Anticipate vaginal delivery unless otherwise indicated Marin Staley MD 1:25 PM 03/23/2019
[2019-03-23] MEDS: Oxytocin/Lactated Ringers 10 UNIT/1,000 ML BAG IV SCH (16:05)
[2019-03-23] MEDS: Lactated Ringers 1,000 ML IV SCH ×2 (16:05→16:50)
[2019-03-23] MEDS: fentaNYL/Bupivacaine/NS 2 MCG-0.125% 250 ML EPIDUR PRN (16:49)
--- NOTE | 2019-03-23 17:28 | PCM.PNLD ---
Labor Progress Note - VS & Meds Vital Signs: Last Vital Signs Temp 36.4 C 03/23/19 07:32 Pulse 106 H 03/23/19 07:32 Resp 16 03/23/19 07:32 BP 118/82 03/23/19 07:32 Pulse Ox 100 03/23/19 07:32 Active Medications: Current Medications Acetaminophen (Tylenol) 650 mg PO Q6H PRN PRN Reason: Pain (Mild 1-3) and fever Diphenhydramine HCl (Benadryl) 25 mg IVPUSH Q6H PRN PRN Reason: Itching Ephedrine Sulfate (Ephedrine Sulfate) 5 mg IVPUSH ASDIRECTED PRN PRN Reason: HYPOTENTSION Fentanyl (Sublimaze) 100 mcg EPIDUR Q3H PRN PRN Reason: Pain Last Admin: 03/23/19 16:48 Dose: 100 mcg Fentanyl/Bupivacaine HCl (Fentanyl/Bupivacaine/Ns 2 Mcg-0.125% 250 Ml) 250 ml EPIDUR CONTINUOUS PRN PRN Reason: Pain Last Admin: 03/23/19 16:49 Dose: 250 ml Lactated Ringer's (Ringers, Lactated) 1,000 mls @ 100 mls/hr IV ASDIRECTED FIDEL Last Admin: 03/23/19 16:50 Dose: 100 mls/hr Oxytocin/Lactated Ringer's (Pitocin In Lr 10 Units/1,000 Ml) 10 unit in 1,000 mls @ 100 mls/hr IV .CONTINUOUS FIDEL; Protocol Oxytocin/Lactated Ringer's (Pitocin In Lr 10 Units/1,000 Ml) 10 unit in 1,000 mls @ 12 mls/hr IV TITRATE FIDEL; Protocol Last Titration: 03/23/19 17:05 Dose: 6 munits/min, 36 mls/hr Nalbuphine HCl (Nubain) 10 mg IVPUSH Q2H PRN PRN Reason: Pain Sodium Chloride (Saline Flush) 10 ml FLUSH ASDIRECTED PRN PRN Reason: Keep Vein Open Discontinued Medications Misoprostol (Cytotec) Confirm Administered Dose 25 mcg .ROUTE .STK-MED ONE Stop: 03/23/19 08:00 Last Admin: 03/23/19 08:06 Dose: Not Given Misoprostol (Cytotec) 25 mcg VAG Q4H PRN PRN Reason: cervical ripening Last Admin: 03/23/19 12:07 Dose: 25 mcg - Uterine Contractions Uterine Monitoring Mode: External [place] Contraction Frequency (min): 1-2 Contraction Duration (sec): 60 Contraction Intensity: Strong Uterine Resting Tone: Soft - Monitoring Monitor Mode: Doppler/Auscultation Heart Rate (FHR) Baseline: 130 Heart Rate (FHR) Per Doppler: 130 Heart Rate (FHR) Variability: Moderate (6-25 bmp) Accelerations: Present, 15x15 Decelerations: None Strip Review: Category I - Vaginal Exam Dilation (cm): 6 cm Effacement (Percent): 80 Station: -3 Cervical Position: Anterior Sterile Vaginal Exam Performed By: Marin Staley Vaginal Exam Comment: Artificial rupture membranes with [place] with return of clear fluid mixed with small clots suspected to be from bloody show. Mother and tolerated procedure without difficulty. - Labor Progress (Free Text) Labor Progress: Patient doing well at this time No significant concerns Continue with Pitocin for augmentation of labor Continue routine vitals Continuous monitoring with Pitocin Patient may have small amounts of regular diet as tolerated Artificial rupture of membranes performed with clear fluid return Patient with epidural for anesthesia Anticipate vaginal delivery unless otherwise indicated Marin Staley MD 5:29 PM 03/23/2019
[2019-03-24] MEDS ORDERED: Bupivacaine 0.25% 10 ML SDV ONE
[2019-03-24] MEDS: Lactated Ringers 1,000 ML IV SCH ×2 (02:58→07:25)
--- NOTE | 2019-03-24 07:00 | PCM.PNLD ---
Labor Progress Note - VS & Meds Vital Signs: Last Vital Signs Temp 36.4 C 03/23/19 07:32 Pulse 106 H 03/23/19 07:32 Resp 16 03/23/19 07:32 BP 118/82 03/23/19 07:32 Pulse Ox 100 03/23/19 07:32 Active Medications: Current Medications Acetaminophen (Tylenol) 650 mg PO Q6H PRN PRN Reason: Pain (Mild 1-3) and fever Diphenhydramine HCl (Benadryl) 25 mg IVPUSH Q6H PRN PRN Reason: Itching Ephedrine Sulfate (Ephedrine Sulfate) 5 mg IVPUSH ASDIRECTED PRN PRN Reason: HYPOTENTSION Fentanyl (Sublimaze) 100 mcg EPIDUR Q3H PRN PRN Reason: Pain Last Admin: 03/23/19 16:48 Dose: 100 mcg Fentanyl/Bupivacaine HCl (Fentanyl/Bupivacaine/Ns 2 Mcg-0.125% 250 Ml) 250 ml EPIDUR CONTINUOUS PRN PRN Reason: Pain Last Admin: 03/23/19 16:49 Dose: 250 ml Lactated Ringer's (Ringers, Lactated) 1,000 mls @ 100 mls/hr IV ASDIRECTED FIDEL Last Admin: 03/24/19 02:58 Dose: 100 mls/hr Oxytocin/Lactated Ringer's (Pitocin In Lr 10 Units/1,000 Ml) 10 unit in 1,000 mls @ 100 mls/hr IV .CONTINUOUS FIDEL; Protocol Oxytocin/Lactated Ringer's (Pitocin In Lr 10 Units/1,000 Ml) 10 unit in 1,000 mls @ 12 mls/hr IV TITRATE FIDEL; Protocol Last Titration: 03/24/19 03:36 Dose: 16 munits/min, 96 mls/hr Nalbuphine HCl (Nubain) 10 mg IVPUSH Q2H PRN PRN Reason: Pain Sodium Chloride (Saline Flush) 10 ml FLUSH ASDIRECTED PRN PRN Reason: Keep Vein Open Discontinued Medications Misoprostol (Cytotec) Confirm Administered Dose 25 mcg .ROUTE .STK-MED ONE Stop: 03/23/19 08:00 Last Admin: 03/23/19 08:06 Dose: Not Given Misoprostol (Cytotec) 25 mcg VAG Q4H PRN PRN Reason: cervical ripening Last Admin: 03/23/19 12:07 Dose: 25 mcg - Uterine Contractions Uterine Monitoring Mode: External [place] Contraction Frequency (min): 1-2 Contraction Duration (sec): 60 Contraction Intensity: Strong Uterine Resting Tone: Soft - Monitoring Monitor Mode: Doppler/Auscultation Heart Rate (FHR) Baseline: 130 Heart Rate (FHR) Per Doppler: 130 Heart Rate (FHR) Variability: Moderate (6-25 bmp) Accelerations: Present, 15x15 Decelerations: Late, Intermittent (<50% x 20 min) Strip Review: Category II - Vaginal Exam Dilation (cm): 8 cm Effacement (Percent): 100 Station: -1 Cervical Position: Anterior Sterile Vaginal Exam Performed By: Marin Staley - Labor Progress (Free Text) Labor Progress: Patient making slow progress at this time Patient overall doing well at this time Continue with Pitocin for augmentation of labor Continue routine vitals Continuous monitoring with Pitocin Patient may have small amounts of regular diet as tolerated Patient with epidural for anesthesia Anticipate vaginal delivery unless otherwise indicated Marin Staley MD 7:01 AM 03/24/2019
[2019-03-24] MEDS: fentaNYL/Bupivacaine/NS 2 MCG-0.125% 250 ML EPIDUR PRN (07:26)
[2019-03-24] MEDS ORDERED: Ondansetron 4 MG/2 ML SDV IVPUSH ONE (08:08)
[2019-03-24] MEDS: Oxytocin/Lactated Ringers 10 UNIT/1,000 ML BAG IV SCH (08:21)
--- NOTE | 2019-03-24 10:39 | PCM.DEL ---
L & D Note - General Info Date of Service: 03/24/19 Mother's Due Date: 03/30/19 - Delivery Note Labor: Augmented by ARM, Augmented by Oxytocin Cervical Ripening Method: Balloon Device (16 Syrian Madsen bulb), Misoprostil ( 25 mcg x 2 doses) Delivery Outcome: Livebirth Infant Delivery Method: Spontaneous Vaginal Delivery-Single Presentation: Right Occiput Anterior (DAKOTAH) Nuchal Cord: Present (x 1 and not reduced prior to delivery) Prep: Povidone-Iodine (Betadine Anesthesia Type: Epidural Amniotic Fluid Description: Clear Episiotomy Type: None Laceration: 2nd Degree, Labial (Bilateral, right side full thickness and repaired with 4-0 Vicryl, left partial thickness and not repaired), Perineal ( Second degree midline and left perineal repaired with 3-0 Vicryl) Suture type: Vicryl Suture size: 3-0 Placenta: Intact, Spontaneous Cord: 3 Vessels Estimated Blood Loss: 500 Resuscitation Needed: Yes : Suctioned, Bulb Syringe, Cathether, Stimulated, Warmed, [place] Used, Warmer Used Provider: Marin Staley Score 1 min: 5 Score 5 min: 9 Second Stage Interventions: Reports: Pushing Effectively, Pushing, Stirrups/Leg Supports Delivery Comments (Free Text/Narrative):: Stage I: Lorena Causey was admitted for elective induction of labor. On admission her cervix was dilated to 1.5 cm. She was GBS negative. She had a 16 Syrian Madsen bulb catheter placed transcervically using speculum and ring forceps. The Madsen bulb was filled with 50 mL of sterile saline. She was given Cytotec for cervical ripening and received a total of 2 doses of Cytotec 25 mcg vaginally. The Madsen bulb was able to be removed and she was dilated to 5 cm at that time. She was transitioned to Pitocin approximately 4 hours after her last dose of Cytotec for augmentation of labor. She was given an epidural for anesthesia. She had artificial rupture membranes with clear fluid. After artificial rupture of membranes she did have a category 2 tracing with late decelerations and variable decelerations and her Pitocin was stopped for a short while for recovery. The Pitocin was then restarted for continued induction of labor. She continued to make progress throughout the evening of induction day #1 and then started to have slow cervical change throughout the evening of induction day #1 and into the morning of induction day #2. In the morning of induction day #2 she progressed to complete and pushing. Stage II: On 03/24/2019 she had a normal vaginal delivery of a live female infant at 09:36. Apgars of 5 & 9. Weight of 3370 g (7 lbs 6.9 oz). Length of 21 inches. There was a single nuchal cord that was tight and unable to be reduced prior to delivery. was delivered in DAKOTAH position. The cord was doubly clamped and cut by father of the infant. Infant was placed on mother's abdomen and then taken to the warmer for additional resuscitation. Stage III: She had a spontaneous delivery of an intact placenta in Adri presentation. Three vessel cord. She was given pitocin and fundal massage. She had a second-degree midline and left perineal laceration that was repaired in normal fashion using 3-0 Vicryl. She had bilateral labial lacerations with full -thickness laceration on the right side that was repaired with running suture of 4-0 Vicryl and a partial-thickness of the left side that was not repaired and hemostatic. Mom and baby were stable to recovery. EBL of 500 mL. Marin Staley MD 10:41 AM 03/24/2019 Induction Criteria - Mario Score Mario Score Dilation: 1-2 cm Mario Score Effacement: 40-50% Mario Score Infant's Station: -3 Mario Score Consistency: Medium Mario Score Cervix Position: Midposition Mario Score Total: 4 Mario Score Presenting Part: Reports: Cephalic - Induction Gestational Age >/= 39 wks: Yes Estimated Pelvis: Reports: Adequate Reassuring Monitoring Strip: Yes Absence of Tachy Systole: Yes - Augmentation Estimated Pelvis: Reports: Adequate Weight Estimated:: Reports: AGA Reassuring Monitoring Strip: Yes Absence of Tachy Systole: Yes - General Info Date of Service: 03/24/19 - Patient Data Vitals - Most Recent: Last Vital Signs Temp 36.4 C 03/23/19 07:32 Pulse 106 H 03/23/19 07:32 Resp 16 03/23/19 07:32 BP 118/82 03/23/19 07:32 Pulse Ox 100 03/23/19 07:32 Weight - Most Recent: 84.051 kg I&O - Last 24 Hours: Intake & Output 03/23/19 03/24/19 03/24/19 22:59 06:59 14:59 Output Total 1300 Balance -1300 Lab Results Last 24 Hours: Laboratory Results - last 24 hr 03/23/19 Range/Units 08:39 RPR Non-reactive (NONREACTIVE) Med Orders - Current: Current Medications Acetaminophen (Tylenol) 650 mg PO Q6H PRN PRN Reason: Pain (Mild 1-3) and fever Diphenhydramine HCl (Benadryl) 25 mg IVPUSH Q6H PRN PRN Reason: Itching Ephedrine Sulfate (Ephedrine Sulfate) 5 mg IVPUSH ASDIRECTED PRN PRN Reason: HYPOTENTSION Fentanyl (Sublimaze) 100 mcg EPIDUR Q3H PRN PRN Reason: Pain Last Admin: 03/23/19 16:48 Dose: 100 mcg Fentanyl/Bupivacaine HCl (Fentanyl/Bupivacaine/Ns 2 Mcg-0.125% 250 Ml) 250 ml EPIDUR CONTINUOUS PRN PRN Reason: Pain Last Admin: 03/24/19 07:26 Dose: 250 ml Lactated Ringer's (Ringers, Lactated) 1,000 mls @ 100 mls/hr IV ASDIRECTED FIDEL Last Admin: 03/24/19 07:25 Dose: 100 mls/hr Oxytocin/Lactated Ringer's (Pitocin In Lr 10 Units/1,000 Ml) 10 unit in 1,000 mls @ 100 mls/hr IV .CONTINUOUS FIDEL; Protocol Oxytocin/Lactated Ringer's (Pitocin In Lr 10 Units/1,000 Ml) 10 unit in 1,000 mls @ 12 mls/hr IV TITRATE FIDEL; Protocol Last Admin: 03/24/19 08:21 Dose: 16 munits/min, 96 mls/hr Nalbuphine HCl (Nubain) 10 mg IVPUSH Q2H PRN PRN Reason: Pain Sodium Chloride (Saline Flush) 10 ml FLUSH ASDIRECTED PRN PRN Reason: Keep Vein Open Discontinued Medications Misoprostol (Cytotec) Confirm Administered Dose 25 mcg .ROUTE .STK-MED ONE Stop: 03/23/19 08:00 Last Admin: 03/23/19 08:06 Dose: Not Given Misoprostol (Cytotec) 25 mcg VAG Q4H PRN PRN Reason: cervical ripening Last Admin: 03/23/19 12:07 Dose: 25 mcg Ondansetron HCl (Zofran) 4 mg IVPUSH ONETIME ONE Stop: 03/24/19 08:09 Last Admin: 03/24/19 08:14 Dose: 4 mg - Problem List & Annotations (1) 39 weeks gestation of SNOMED Code(s): 52479906 Code(s): Z3A.39 - 39 WEEKS GESTATION OF Status: Acute Current Visit: Yes (2) Polycystic ovary syndrome SNOMED Code(s): 914657741 Code(s): E28.2 - POLYCYSTIC OVARIAN SYNDROME Status: Acute Current Visit : Yes (3) Depression SNOMED Code(s): 69299034 Code(s): F32.9 - MAJOR DEPRESSIVE DISORDER, SINGLE EPISODE, UNSPECIFIED Status: Acute Current Visit: Yes (4) Gastroesophageal reflux in SNOMED Code(s): 94371611878376992 Code(s): O99.619 - DISEASES OF THE DGSTV SYS COMP , UNSP TRIMESTER; K21.9 - GASTRO-ESOPHAGEAL REFLUX DISEASE WITHOUT ESOPHAGITIS Status: Acute Current Visit: Yes (5) Vaginal delivery SNOMED Code(s): 311775832 Code(s): O80 - ENCOUNTER FOR FULL-TERM UNCOMPLICATED DELIVERY Status: Acute Current Visit: Yes (6) Second degree perineal laceration during delivery SNOMED Code(s): 1082938 Code(s): O70.1 - SECOND DEGREE PERINEAL LACERATION DURING DELIVERY Status: Acute Current Visit: Yes - Problem List Review Problem List Initiated/Reviewed/Updated: Yes - My Orders Last 24 Hours: My Active Orders 03/23/19 13:30 Oxytocin/Lactated Ringers [Pitocin in LR 10 Units/1,000 ML] 10 unit in 1,000 ml IV TITRATE 03/24/19 10:22 Patient Status Manage Transfer [TRANSFER] Routine - Plan Plan:: Admit to inpatient following normal spontaneous vaginal delivery Continue Pitocin per unit protocol following delivery of placenta and lactated Ringer's until tolerating regular diet Regular diet Vitals per unit routine Ibuprofen and Tylenol for pain control Assist with breast-feeding as needed Continue to monitor lochia CBC in day #1 due to EBL of 500 mL during delivery Anticipate discharge home on day #1 or #2 depending on status Marin Staley MD 10:46 AM 03/24/2019
[2019-03-24] MEDS ORDERED: Witch Hazel Medicated Pads 40/Jar TOP PRN (11:16)
[2019-03-24] MEDS ORDERED: Benzocaine/Menthol 20%-0.5% Spray 56 GM Canister TOP PRN (11:16)
[2019-03-24] MEDS ORDERED: Acetaminophen 325 MG Tab PO PRN (11:16)
[2019-03-24] MEDS ORDERED: Hydrocortisone Acetate 25 MG Supp RECTAL PRN (11:16)
[2019-03-24] MEDS ORDERED: Docusate Sodium 100 MG Cap PO PRN (11:16)
[2019-03-24] MEDS ORDERED: Oxytocin/Lactated Ringers 10 UNIT/1,000 ML BAG IV SCH (11:16)
[2019-03-24] MEDS: Ibuprofen 600 MG Tab PO PRN (13:37)
[2019-03-25] MEDS ORDERED: Ferrous Sulfate 324 MG Tab.EC PO SCH (07:00)
--- NOTE | 2019-03-25 07:45 | PCM.DCSUM1 ---
Discharge Summary - Hospital Course Brief History: Admitted for induction. Uncomplicated course and . Desires discharge PPD1. Diagnosis: Stroke: No - Discharge Data Discharge Date: 03/25/19 Discharge Disposition: Home, Self-Care 01 Condition: Good - Referral to Home Health Primary Care Physician: Marin Staley MD - Patient Instructions Diet: Usual Diet as Tolerated Activity: No Strenuous Activities Driving: May Drive Today Notify Provider of: Fever, Increased Pain, Swelling and Redness, Drainage, Nausea and/or Vomiting - Discharge Plan *PRESCRIPTION DRUG MONITORING PROGRAM REVIEWED*: No *COPY OF PRESCRIPTION DRUG MONITORING REPORT IN PATIENT RICKEY: No Home Medications: Home Meds . [No Known Home Meds] 03/23/19 [History] Referrals: Milagro Ramirez MD [Physician] - - Discharge Summary/Plan Comment DC Time >30 min.: No - General Info Date of Service: 03/25/19 Functional Status: Reports: Pain Controlled - Review of Systems General: Reports: No Symptoms HEENT: Reports: No Symptoms Pulmonary: Reports: No Symptoms Cardiovascular: Reports: No Symptoms Gastrointestinal: Reports: No Symptoms Genitourinary: Reports: No Symptoms Musculoskeletal: Reports: No Symptoms Skin: Reports: No Symptoms Neurological: Reports: No Symptoms Psychiatric: Reports: No Symptoms - Patient Data Vitals - Most Recent: Last Vital Signs Temp 36.4 C 03/25/19 03:02 Pulse 79 03/25/19 03:02 Resp 14 03/25/19 03:02 BP 94/57 L 03/25/19 03:02 Pulse Ox 99 03/25/19 03:02 Weight - Most Recent: 84.051 kg I&O - Last 24 hours: Intake & Output 03/24/19 03/25/19 03/25/19 22:59 06:59 14:59 Intake Total 400 Balance 400 Lab Results - Last 24 hrs: Laboratory Results - last 24 hr 03/25/19 Range/Units 05:12 WBC 20.03 H (3.98-10.04) K/mm3 RBC 3.58 L (3.98-5.22) M/mm3 Hgb 10.1 L (11.2-15.7) gm/dl Hct 31.7 L (34.1-44.9) % MCV 88.5 (79.4-94.8) fl MCH 28.2 (25.6-32.2) pg MCHC 31.9 L (32.2-35.5) g/dl RDW Std Deviation 42.7 (36.4-46.3) fL Plt Count 258 (182-369) K/mm3 MPV 9.9 (9.4-12.3) fl Neut % (Auto) 77.2 H (34.0-71.1) % Lymph % (Auto) 14.5 L (19.3-51.7) % [place] % (Auto) 7.4 (4.7-12.5) % Eos % (Auto) 0.5 L (0.7-5.8) Baso % (Auto) 0.1 (0.1-1.2) % Neut # (Auto) 15.45 H (1.56-6.13) K/mm3 Lymph # (Auto) 2.90 (1.18-3.74) K/mm3 [place] # (Auto) 1.48 H (0.24-0.36) K/mm3 Eos # (Auto) 0.11 (0.04-0.36) K/mm3 Baso # (Auto) 0.02 (0.01-0.08) K/mm3 Manual Slide Review Abnormal smear Med Orders - Current: Current Medications Acetaminophen (Tylenol) 650 mg PO Q6H PRN PRN Reason: mild pain or fever Benzocaine/Menthol (Dermoplast Pain Relief [place]) 0 gm TOP ASDIRECTED PRN PRN Reason: Perineal Comfort Measure Last Admin: 03/24/19 13:38 Dose: 1 can Docusate Sodium (Colace) 100 mg PO BID PRN PRN Reason: Constipation Last Admin: 03/25/19 06:25 Dose: 100 mg Ferrous Sulfate (Ferrous Sulfate) 324 mg PO WITHBREAKFAST FIDEL Last Admin: 03/25/19 06:25 Dose: 324 mg Hydrocortisone Acetate (Anucort-Hc) 25 mg RECTAL BID PRN PRN Reason: Hemorrhoid pain Oxytocin/Lactated Ringer's (Pitocin In Lr 10 Units/1,000 Ml) 10 unit in 1,000 mls @ 100 mls/hr IV TITRATE FIDEL; Protocol Ibuprofen (Motrin) 600 mg PO Q6H PRN PRN Reason: Mild pain or fever Last Admin: 03/24/19 13:37 Dose: 600 mg Prenat Multivit/[place]/Iron/Folic Ac ( Plus Iron) 1 each PO DAILY [facility] Lilia (Tucks) 1 pad TOP ASDIRECTED PRN PRN Reason: Perineal Comfort Measure Last Admin: 03/24/19 13:38 Dose: 1 tub Discontinued Medications Acetaminophen (Tylenol) 650 mg PO Q6H PRN PRN Reason: Pain (Mild 1-3) and fever Bupivacaine HCl (Sensorcaine-Mpf 0.25%) 10 ml .ROUTE .STK-MED ONE Stop: 03/24/19 00:01 Diphenhydramine HCl (Benadryl) 25 mg IVPUSH Q6H PRN PRN Reason: Itching Ephedrine Sulfate (Ephedrine Sulfate) 5 mg IVPUSH ASDIRECTED PRN PRN Reason: HYPOTENTSION Fentanyl (Sublimaze) 100 mcg EPIDUR Q3H PRN PRN Reason: Pain Last Admin: 03/23/19 16:48 Dose: 100 mcg Fentanyl/Bupivacaine HCl (Fentanyl/Bupivacaine/Ns 2 Mcg-0.125% 250 Ml) 250 ml EPIDUR CONTINUOUS PRN PRN Reason: Pain Last Admin: 03/24/19 07:26 Dose: 250 ml Lactated Ringer's (Ringers, Lactated) 1,000 mls @ 100 mls/hr IV ASDIRECTED FIDEL Last Admin: 03/24/19 07:25 Dose: 100 mls/hr Oxytocin/Lactated Ringer's (Pitocin In Lr 10 Units/1,000 Ml) 10 unit in 1,000 mls @ 100 mls/hr IV .CONTINUOUS FIDEL; Protocol Oxytocin/Lactated Ringer's (Pitocin In Lr 10 Units/1,000 Ml) 10 unit in 1,000 mls @ 12 mls/hr IV TITRATE FIDEL; Protocol Last Titration: 03/24/19 09:37 Dose: 500 mls/hr Misoprostol (Cytotec) Confirm Administered Dose 25 mcg .ROUTE .STDeepDyve-MED ONE Stop: 03/23/19 08:00 Last Admin: 03/23/19 08:06 Dose: Not Given Misoprostol (Cytotec) 25 mcg VAG Q4H PRN PRN Reason: cervical ripening Last Admin: 03/23/19 12:07 Dose: 25 mcg Nalbuphine HCl (Nubain) 10 mg IVPUSH Q2H PRN PRN Reason: Pain Ondansetron HCl (Zofran) 4 mg IVPUSH ONETIME ONE Stop: 03/24/19 08:09 Last Admin: 03/24/19 08:14 Dose: 4 mg Sodium Chloride (Saline Flush) 10 ml FLUSH ASDIRECTED PRN PRN Reason: Keep Vein Open
[2019-03-25] MEDS: Ibuprofen 600 MG Tab PO PRN (08:28)
[2019-03-25] MEDS ORDERED: Prenatal Multivitamin with Calcium/Folic Acid/Iron Tab PO SCH (09:00)
[2019-03-25 15:21] VITALS: BP 131/85; PULSE 77
== END 2019-03-25 15:15 | disposition home or self-care (01) | DRG 807 ==
LOC: JD.OB 07:19 → OBSVTOIN 03-24 09:36 → JD.OB 03-24 09:37
PROVIDERS: ADMIT Obstetrics & Gynecology; ATTEND Obstetrics & Gynecology
PROC: 10E0XZZ Delivery of Products of Conception, External Approach (ICD-10-PCS; principal; 2019-03-24)
PROC: 3E0P7VZ Introduction of Hormone into Female Reproductive, Via Natural or Artificial Opening (ICD-10-PCS; 2019-03-24)
PROC: 0KQM0ZZ Repair Perineum Muscle, Open Approach (ICD-10-PCS; 2019-03-24)
PROC: 10907ZC Drainage of Amniotic Fluid, Therapeutic from Products of Conception, Via Natural or Artificial Opening (ICD-10-PCS; 2019-03-24)
PROC: 3E033VJ Introduction of Other Hormone into Peripheral Vein, Percutaneous Approach (ICD-10-PCS; 2019-03-24)
DX: O69.1XX0 Labor and delivery complicated by cord around neck, with compression, not applicable or unspecified (principal); Z37.0 Single live birth; O99.284 Endocrine, nutritional and metabolic diseases complicating childbirth; E28.2 Polycystic ovarian syndrome; O99.344 Other mental disorders complicating childbirth; F32.9 Major depressive disorder, single episode, unspecified; O99.62 Diseases of the digestive system complicating childbirth; K21.9 Gastro-esophageal reflux disease without esophagitis; O70.1 Second degree perineal laceration during delivery; Z3A.39 39 weeks gestation of pregnancy; Z87.891 Personal history of nicotine dependence; Z88.0 Allergy status to penicillin; Z88.1 Allergy status to other antibiotic agents; Z90.49 Acquired absence of other specified parts of digestive tract
CPT/HCPCS: 36415; 51701; 51702; 59025; 59409; 85025; 86592; A9270-GY; J2405; J2590; J3010; J3490; J7120

== ENCOUNTER 2020-10-14 11:59 | Inpatient (IN) | payer MEDICAID ==
[~2020-10-14 11:59] MED LIST changes: -Bupivacaine 0.5%/EPINEPHrine 1:200,000 50 ML MDV ONE; -Lactated Ringers 1,000 ML IV SCH; -Lidocaine 1% with EPINEPHrine 1:100,000 20 ML MDV ONE; -Lidocaine 1%/Sod Bicarbonate in NS 8.4% 1 ML Syringe PRN; +Lidocaine 1.5% with EPINEPHrine 1:200,000 5 ML Amp ONE; -Sodium Chloride 0.9% 10 ML Syringe FLUSH PRN
[2020-10-14] MEDS ORDERED: Lidocaine 1% 50 ML MDV INJECT ONE (12:11)
[2020-10-14] MEDS ORDERED: Ondansetron 4 MG/2 ML SDV IVPUSH PRN (12:11)
[2020-10-14] MEDS ORDERED: Sodium Chloride 0.9% 10 ML Syringe FLUSH PRN (12:11)
[2020-10-14] MEDS ORDERED: Nalbuphine 10 MG/1 ML Vial IVPUSH PRN (12:11)
[2020-10-14] MEDS ORDERED: Oxytocin/Lactated Ringers 10 UNIT/1,000 ML BAG IV SCH ×2 (12:15)
[2020-10-14] MEDS: Lactated Ringers 1,000 ML IV SCH ×2 (13:19→18:54)
[2020-10-14] MEDS ORDERED: ePHEDrine 50 MG/ML SDV IVPUSH PRN (19:02)
[2020-10-14] MEDS ORDERED: diphenhydrAMINE 50 MG/ML SDV IVPUSH PRN (19:02)
[2020-10-14] MEDS ORDERED: Bupivacaine/fentaNYL/NS 100 ML Bag EPIDUR PRN (19:02)
[2020-10-14] MEDS ORDERED: fentaNYL 100 MCG/2 ML SDV EPIDUR PRN (19:02)
--- NOTE | 2020-10-14 19:34 | PCM.PREANE ---
Preanesthetic Assessment - Procedure Proposed Procedure: Continuous labor epidural - Anesthesia/Transfusion/Family Hx Anesthesia History: Prior Anesthesia Without Reaction Transfusion History: No Prior Transfusion(s) - Review of Systems General: No Symptoms Pulmonary: No Symptoms Cardiovascular: No Symptoms Gastrointestinal: No Symptoms Neurological: No Symptoms Other: Reports: None - Physical Assessment Vital Signs: Last Vital Signs Temp 98.1 F 10/14/20 12:23 Pulse 72 10/14/20 12:23 Resp 14 10/14/20 12:23 BP 124/79 10/14/20 12:23 Pulse Ox 100 10/14/20 12:23 Height: 1.6 m Weight: 85.411 kg ASA Class: 2 Mental Status: Alert & Oriented x3 Airway Class: Mallampati = 2 Dentition: Reports: Normal Dentition Thyro-Mental Finger Breadths: 3 Mouth Opening Finger Breadths: 3 ROM/Head Extension: Full Lungs: Clear to Auscultation, Normal Respiratory Effort Cardiovascular: Regular Rate, Regular Rhythm - Lab Values: Laboratory Last Values WBC 9.27 K/mm3 (3.98-10.04) 10/14/20 12:32 RBC 4.20 M/mm3 (3.98-5.22) 10/14/20 12:32 Hgb 11.9 gm/dl (11.2-15.7) 10/14/20 12:32 Hct 36.1 % (34.1-44.9) 10/14/20 12:32 MCV 86.0 fl (79.4-94.8) D 10/14/20 12:32 MCH 28.3 pg (25.6-32.2) 10/14/20 12:32 MCHC 33.0 g/dl (32.2-35.5) 10/14/20 12:32 RDW Std Deviation 41.9 fL (36.4-46.3) 10/14/20 12:32 Plt Count 281 K/mm3 (182-369) 10/14/20 12:32 MPV 9.4 fl (9.4-12.3) 10/14/20 12:32 Neut % (Auto) 69.5 % (34.0-71.1) 10/14/20 12:32 Lymph % (Auto) 21.6 % (19.3-51.7) 10/14/20 12:32 [place] % (Auto) 8.4 % (4.7-12.5) 10/14/20 12:32 Eos % (Auto) 0.2 (0.7-5.8) L 10/14/20 12:32 Baso % (Auto) 0.1 % (0.1-1.2) 10/14/20 12:32 Neut # (Auto) 6.44 K/mm3 (1.56-6.13) H 10/14/20 12:32 Lymph # (Auto) 2.00 K/mm3 (1.18-3.74) 10/14/20 12:32 [place] # (Auto) 0.78 K/mm3 (0.24-0.36) H 10/14/20 12:32 Eos # (Auto) 0.02 K/mm3 (0.04-0.36) L 10/14/20 12:32 Baso # (Auto) 0.01 K/mm3 (0.01-0.08) 10/14/20 12:32 SARS-CoV-2 RNA (ZAY) Negative (NEGATIVE) 10/14/20 12:13 - Allergies Allergies/Adverse Reactions: Allergies Allergy/AdvReac Type Severity Reaction Status Date / Time amoxicillin [From Trimox] Allergy Hives Verified 10/14/20 12:10 Penicillins Allergy Hives Verified 10/14/20 12:10 - Acknowledgements Anesthesia Type Planned: Epidural Pt an Appropriate Candidate for the Planned Anesthesia: Yes Alternatives and Risks of Anesthesia Discussed w Pt/Guardian: Yes Pt/Guardian Understands and Agrees with Anesthesia Plan: Yes PreAnesthesia Questionnaire HEENT History: Reports: Sinusitis Other HEENT History: oral surgery Cardiovascular History: Reports: None Respiratory History: Reports: None, Other (See Below) Other Respiratory History: seasonal allergies Gastrointestinal History: Reports: Cholelithiasis, GERD Genitourinary History: Reports: UTI, Recurrent 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 Musculoskeletal History: Reports: Back Pain, Chronic Neurological History: Reports: None Psychiatric History: Reports: Depression Endocrine/Metabolic History: Reports: None Hematologic History: Reports: None Immunologic History: Reports: None Oncologic (Cancer) History: Reports: None Dermatologic History: Reports: Other (See Below) Other Dermatologic History: impetigo - Infectious Disease History Infectious Disease History: Reports: None - Past Surgical History Head Surgeries/Procedures: Reports: None HEENT Surgical History: Reports: Oral Surgery GI Surgical History: Reports: Cholecystectomy Female Surgical History: Reports: None - SUBSTANCE USE Tobacco Use Within Last Twelve Months: No Second Hand Smoke Exposure: No Recreational Drug Use History: No - HOME MEDS Home Medications: Home Meds Loratadine [Claritin] 10 mg PO DAILY 10/14/20 [History] - CURRENT (IN HOUSE) MEDS Current Meds: Current Medications Diphenhydramine HCl (Diphenhydramine 50 Mg/Ml Sdv) 25 mg IVPUSH Q6H PRN PRN Reason: pruritis Ephedrine Sulfate (Ephedrine 50 Mg/Ml Sdv) 5 mg IVPUSH ASDIRECTED PRN PRN Reason: Hypotension Fentanyl (Fentanyl 100 Mcg/2 Ml Sdv) 100 mcg EPIDUR Q3H PRN PRN Reason: Pain Fentanyl/Bupivacaine HCl (Bupivacaine/Fentanyl/Ns 100 Ml Bag) 100 ml EPIDUR ASDIRECTED PRN PRN Reason: Pain Oxytocin/Lactated Ringer's (Pitocin In Lr 10 Units/1,000 Ml) 10 unit in 1,000 mls @ 500 mls/hr IV .CONTINUOUS FIDEL Oxytocin/Lactated Ringer's (Pitocin In Lr 10 Units/1,000 Ml) 10 unit in 1,000 mls @ 12 mls/hr IV TITRATE FIDEL; Protocol Last Titration: 10/14/20 18:53 Dose: 8 munits/min, 48 mls/hr Documented by: Lactated Ringer's (Ringers, Lactated) 1,000 mls @ 100 mls/hr IV ASDIRECTED FIDEL Last Admin: 10/14/20 18:54 Dose: 100 mls/hr Documented by: Nalbuphine HCl (Nalbuphine 10 Mg/1 Ml Vial) 10 mg IVPUSH Q2H PRN PRN Reason: Pain Ondansetron HCl (Ondansetron 4 Mg/2 Ml Sdv) 4 mg IVPUSH Q4H PRN PRN Reason: Nausea/Vomiting Sodium Chloride (Sodium Chloride 0.9% 10 Ml Syringe) 10 ml FLUSH ASDIRECTED PRN PRN Reason: Keep Vein Open Discontinued Medications Lidocaine HCl (Lidocaine 1% 50 Ml Mdv) 50 ml INJECT ONETIME ONE Stop: 10/14/20 12:12
--- NOTE | 2020-10-14 19:46 | PCM.LDHP ---
L&D History of Present Illness - General Date of Service: 10/14/20 Admit Problem/Dx: Patient Status Order with Admit Dx/Problem 10/14/20 12:12 Patient Status [ADT] Routine Admission Diagnosis/Problem Admission Diagnosis/Problem 10/14/20 19:39 Lorena is a 25-year-old 4 para 1-0-2-1 female admitted at midday on 10/14/2020 at 40-0/7 weeks gestational age for induction of labor. Source of Information: Patient History Limitations: Reports: No Limitations - History of Present Illness Introduction:: Lorena is a 25-year-old 4 para 1-0-2-1 female admitted at midday on 10/14/2020 at 40-0/7 weeks gestational age for induction of labor. She receives her care from Dr. Marin Staley. The procedure, risk, benefits of induction of labor and alternatives of care including allowing for natural onset of labor all discussed with patient. She appears to understand and wishes to proceed. 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 Cycles q. months. Patient has had two previous miscarriages and one full-term on 03/24/2019 at 39 weeks gestational age. After 20 h of labor. 7 lb 7 oz female infant was born via . She had epidural for labor analgesia. She has second-degree laceration at that time. Patient denies any STIs in the past. She is felt to have PCOS. course. Patient's first visit was on 03/26/2020 at 11-1/7 weeks gestational age. She was seen on a regular basis throughout the . Weight gain was from 172 to 184 lbs. Vital signs remained stable throughout the course. Fundal height growth was appropriate. Patient declined flu shot. Her group B strep was negative on 09/18/2020. Hepatitis C testing was negative. Prequel test was done on 03/26/2020. Showing low risk status for trisomy 1318 and 21. Male infant. Gender identification. Patient has a history of depression with anxiety. EPDS score on 05/20/2020 was 6/30. She also is felt to have PCOS. Laboratory testing in shows blood to be O+ with a negative antibody screen. Hemoglobin is 13.0 g/dL. Platelets are 280,000. Rubella titer shows immunity. RPR is nonreactive. Urine culture was negative. Hepatitis B surface antigen and HIV assays were both negative. Chlamydia and gonorrhea tests were both negative. Cell free DNA screening early in the was negative for trisomy 1318 and 21 with gender identification is consistent with male. Second trimester labs showed a hemoglobin of 13.2 and a platelet count of 281,000. 1 h GTT was 82. RPR done 06/24/2020 was negative. Group B strep screen was negative. Allergies: Trimox and penicillins which cause hives Medications: Vitamin D3 2000 units daily 2. vitamins one daily Past medical history: 1. x2 2. Early lossfirst trimester 2015 2017. 3. History of depression. 4. Seasonal allergies Past surgical history: 1. Laparoscopic cholecystectomy 2016 2. [place] tooth extraction 2014. Family history: Paternal grandfather with diabetes and hypertension. Mother and sister with depression. Mother and maternal grandmother with varicosities. One mother with history of colitis. Sister with rosacea. Maternal grandmother with skin cancer. Social history patient is . is Gavin. 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 She has some college education. She does not use any significant also alcohol, drugs or tobacco. Review of systems: In general patient has no complaints. Baby is active. No significant contractions noted upon admission. Skin: Negative Lungs: No infectious symptoms or shortness of breath Cardiovascular: No chest pain or exercise intolerance Breasts: No lumps, changes in size, pain, dimpling, discharge or axillary or supraclavicular concerns. GI: Negative : Body habitus changes consistent with . Musculoskeletal: Negative Neurological: Negative In general the patient is well-developed, well-nourished, pleasant female of st ated age in no acute distress. Skin is warm dry without lesions. HEENT, neck and back within normal limits. Lungs are clear with good breath sounds in all lung [place]. Cardiovascular exam shows regular and rhythm without murmurs. Abdomen is f gravid with last fundal height in at 38 cm on 10/01/2020. Genital per nursing evaluation on admission was 1 to 2 cm. 80% effaced, soft. Membranes intact. Extremities and neurological exam are grossly within normal limits. - Related Data Allergies/Adverse Reactions: Allergies Allergy/AdvReac Type Severity Reaction Status Date / Time amoxicillin [From Trimox] Allergy Hives Verified 10/14/20 12:10 Penicillins Allergy Hives Verified 10/14/20 12:10 Home Medications: Home Meds Loratadine [Claritin] 10 mg PO DAILY 10/14/20 [History] Past Medical History HEENT History: Reports: Sinusitis Other HEENT History: oral surgery Cardiovascular History: Reports: None Respiratory History: Reports: None, Other (See Below) Other Respiratory History: seasonal allergies Gastrointestinal History: Reports: Cholelithiasis, GERD Genitourinary History: Reports: UTI, Recurrent 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 Musculoskeletal History: Reports: Back Pain, Chronic Neurological History: Reports: None Psychiatric History: Reports: Depression Endocrine/Metabolic History: Reports: None Hematologic History: Reports: None Immunologic History: Reports: None Oncologic (Cancer) History: Reports: None Dermatologic History: Reports: Other (See Below) Other Dermatologic History: impetigo - Infectious Disease History Infectious Disease History: Reports: None - Past Surgical History Head Surgeries/Procedures: Reports: None HEENT Surgical History: Reports: Oral Surgery GI Surgical History: Reports: Cholecystectomy Female Surgical History: Reports: None Social & Family History - Family History Family Medical History: No Pertinent Family History - Tobacco Use Used Tobacco, but Quit: No Second Hand Smoke Exposure: No - Caffeine Use Caffeine Use: Reports: None Other Caffeine Use: decaff tea - Recreational Drug Use Recreational Drug Use: No - Living Situation & Occupation Living situation: Reports: , with Spouse Occupation: Employed H&P Review of Systems - Review of Systems: Review Of Systems: See Below L&D Exam - Exam Exam: See Below - Vital Signs Vital Signs: Last Vital Signs Temp 36.7 C 10/14/20 12:23 Pulse 72 10/14/20 12:23 Resp 14 10/14/20 12:23 BP 124/79 10/14/20 12:23 Pulse Ox 100 10/14/20 12:23 Weight: 85.411 kg - Patient Data Lab Results Last 24 hrs: Laboratory Results - last 24 hr 10/14/20 10/14/20 Range/Units 12:13 12:32 WBC 9.27 (3.98-10.04) K/mm3 RBC 4.20 (3.98-5.22) M/mm3 Hgb 11.9 (11.2-15.7) gm/dl Hct 36.1 (34.1-44.9) % MCV 86.0 D (79.4-94.8) fl MCH 28.3 (25.6-32.2) pg MCHC 33.0 (32.2-35.5) g/dl RDW Std Deviation 41.9 (36.4-46.3) fL Plt Count 281 (182-369) K/mm3 MPV 9.4 (9.4-12.3) fl Neut % (Auto) 69.5 (34.0-71.1) % Lymph % (Auto) 21.6 (19.3-51.7) % [place] % (Auto) 8.4 (4.7-12.5) % Eos % (Auto) 0.2 L (0.7-5.8) Baso % (Auto) 0.1 (0.1-1.2) % Neut # (Auto) 6.44 H (1.56-6.13) K/mm3 Lymph # (Auto) 2.00 (1.18-3.74) K/mm3 [place] # (Auto) 0.78 H (0.24-0.36) K/mm3 Eos # (Auto) 0.02 L (0.04-0.36) K/mm3 Baso # (Auto) 0.01 (0.01-0.08) K/mm3 SARS-CoV-2 RNA (ZAY) Negative (NEGATIVE) Result Diagrams: 10/14/20 12:32 - Problem List (1) 40 weeks gestation of SNOMED Code(s): 91534156 ICD Code: Z3A.40 - 40 WEEKS GESTATION OF Status: Acute Current Visit: Yes (2) Recurrent loss in patient in third trimester, antepartum SNOMED Code(s): 242725399, 80941278, 193813115 ICD Code: O26.23 - PREG CARE FOR PATIENT W RECURRENT PREG LOSS, THIRD TRIMESTER Status: Acute Current Visit: Yes Problem List Initiated/Reviewed/Updated: Yes Orders Last 24hrs: Active Orders 24 hr Category Date Time Status Patient Status [ADT] Routine ADT 10/14/20 12:12 Active Activity as Tolerated [RC] PFP Care 10/14/20 12:12 Active Communication Order [RC] ASDIRECTED Care 10/14/20 12:12 Active Heart Tones [RC] ASDIRECTED Care 10/14/20 12:12 Active Notify Provider [RC] ASDIRECTED Care 10/14/20 19:02 Active Notify Provider [RC] PFP Care 10/14/20 12:12 Active Notify Provider [RC] PRN Care 10/14/20 12:12 Active Peripheral IV Care [RC] Q4HR Care 10/14/20 12:12 Active Vital Signs [RC] PER UNIT ROUTINE Care 10/14/20 12:12 Active Regular Diet [DIET] Diet 10/14/20 Lunch Active RAPID PLASMA REAGIN,RPR [CHEM] Routine Lab 10/14/20 12:32 Received Bupivacaine/fentaNYL/NS [fentaNYL/Bupivacaine/NS 2 MCG- Med 10/14/20 19:02 Active 0.125% 100 ML] 100 ml EPIDUR ASDIRECTED PRN Lactated Ringers [Ringers, Lactated] 1,000 ml Med 10/14/20 12:15 Active IV ASDIRECTED Nalbuphine [Nubain] Med 10/14/20 12:11 Active 10 mg IVPUSH Q2H PRN Ondansetron [Zofran] Med 10/14/20 12:11 Active 4 mg IVPUSH Q4H PRN Oxytocin/Lactated Ringers [Pitocin in LR 10 Units/1,000 Med 10/14/20 12:15 Active ML] 10 unit in 1,000 ml IV .CONTINUOUS Oxytocin/Lactated Ringers [Pitocin in LR 10 Units/1,000 Med 10/14/20 12:15 Active ML] 10 unit in 1,000 ml IV TITRATE Sodium Chloride 0.9% [Saline Flush] Med 10/14/20 12:11 Active 10 ml FLUSH ASDIRECTED PRN diphenhydrAMINE [Benadryl] Med 10/14/20 19:02 Active 25 mg IVPUSH Q6H PRN ePHEDrine [ePHEDrine sulfate] Med 10/14/20 19:02 Active 5 mg IVPUSH ASDIRECTED PRN fentaNYL [Sublimaze] Med 10/14/20 19:02 Active 100 mcg EPIDUR Q3H PRN Electronic Heart Tones Ext w TOCO [WOMSER] Oth 10/14/20 12:12 Ordered Routine Electronic Heart Tones Internal [WOMSER] Per Unit Oth 10/14/20 12:12 Ordered Routine Peripheral IV Insertion Adult [OM.PC] Routine Oth 10/14/20 12:12 Ordered Resuscitation Status Routine Resus Stat 10/14/20 12:11 Ordered Medication Orders Diphenhydramine HCl (Diphenhydramine 50 Mg/Ml Sdv) 25 mg IVPUSH Q6H PRN PRN Reason: pruritis Ephedrine Sulfate (Ephedrine 50 Mg/Ml Sdv) 5 mg IVPUSH ASDIRECTED PRN PRN Reason: Hypotension Fentanyl (Fentanyl 100 Mcg/2 Ml Sdv) 100 mcg EPIDUR Q3H PRN PRN Reason: Pain Fentanyl/Bupivacaine HCl (Bupivacaine/Fentanyl/Ns 100 Ml Bag) 100 ml EPIDUR ASDIRECTED PRN PRN Reason: Pain Oxytocin/Lactated Ringer's (Pitocin In Lr 10 Units/1,000 Ml) 10 unit in 1,000 mls @ 500 mls/hr IV .CONTINUOUS FIDEL Oxytocin/Lactated Ringer's (Pitocin In Lr 10 Units/1,000 Ml) 10 unit in 1,000 mls @ 12 mls/hr IV TITRATE FIDEL; Protocol Last Titration: 10/14/20 18:53 Dose: 8 munits/min, 48 mls/hr Documented by: Titration: 10/14/20 18:45 Dose: 10 munits/min, 60 mls/hr Documented by: Titration: 10/14/20 18:00 Dose: 11 munits/min, 66 mls/hr Documented by: Titration: 10/14/20 17:00 Dose: 10 munits/min, 60 mls/hr Documented by: Titration: 10/14/20 15:45 Dose: 9 munits/min, 54 mls/hr Documented by: Titration: 10/14/20 14:34 Dose: 8 munits/min, 48 mls/hr Documented by: Titration: 10/14/20 13:51 Dose: 6 munits/min, 36 mls/hr Documented by: Titration: 10/14/20 13:36 Dose: 4 munits/min, 24 mls/hr Documented by: Admin: 07/26/21 13:19 Dose: 2 munits/min, 12 mls/hr Documented by: ISRRAEL Lactated Ringer's (Ringers, Lactated) 1,000 mls @ 100 mls/hr IV ASDIRECTED FIDEL Aman Admin: 10/14/20 18:54 Dose: 100 mls/hr Documented by: Infusion: 10/14/20 18:54 Dose: 100 mls/hr Documented by: Admin: 10/14/20 13:19 Dose: 100 mls/hr Documented by: ISRRAEL Nalbuphine HCl (Nalbuphine 10 Mg/1 Ml Vial) 10 mg IVPUSH Q2H PRN PRN Reason: Pain Ondansetron HCl (Ondansetron 4 Mg/2 Ml Sdv) 4 mg IVPUSH Q4H PRN PRN Reason: Nausea/Vomiting Sodium Chloride (Sodium Chloride 0.9% 10 Ml Syringe) 10 ml FLUSH ASDIRECTED PRN PRN Reason: Keep Vein Open Assessment/Plan Comment:: 1. Lorena is a 25-year-old 4 para 1-0-2-1 female admitted at midday on 10/14/2020 at 40-0/7 weeks gestational age for induction of labor. 2. Group B strep negative 3. Patient considering nursing 4. Patient is desiring epidural in labor 5. Normal prequel genetic screening during 6. Risk factors for the include history of depression/anxiety. 6. Patient has had her Tdap during and is rubella immune. Plan: 1. Pitocin induction, AROM augmentation as possible 2. Epidural as needed per patient desire 3. Support breast-feeding decision if she decides to proceed in that fashion 4. Anticipate normal spontaneous vaginal delivery 5. Routine admission evaluation consisting of CBC, COVID-19 testing, RPR per protocol.
--- NOTE | 2020-10-14 23:15 | PCM.SN.2 ---
- Free Text/Narrative Note: Delivery note: Stage I: Lorena is a 25-year-old 4 para 1-0-2-1 female admitted at midday on 10/14/2020 at 40-0/7 weeks gestational age for induction of labor. Patient was started on Pitocin and increased to provide contractions every 3 minutes. She underwent spontaneous rupture membranes with resultant light meconium-stained amniotic fluid. She underwent epidural for labor analgesia with good results. She made good progress and at approximately 2215 hrs. on 10/14/2000 she became completely dilated. She pushed for 2 contractions then delivered a baby. Stage II: The patient delivered a viable, bull, female named Shellie Palacio. She weighed 3520 g (1 7 pounds 12.2 ounces), had Apgars of 8 and 9 and a length of 20.5 inches. She delivered in a direct occiput anterior position. Shoulders were delivered with gentle downward and then upward traction. The baby was placed on mom's abdomen and was dried with warm blanket. Nose and mouth were bulb suction. Pitocin infusion, at routine concentration of 10 units/L, was increased to a rate of 500 cc an hour to facilitate increase uterin e tone and decrease likelihood of bleeding. No perineal lacerations or vaginal lacerations occurred. The cord is allowed to pulsate x3 minutes and then was clamped x2 and cut by the baby's Father Gavin. The umbilical cord had 3 vessels. Umbilical cord blood was obtained. Stage III: The placenta delivered at 2229 hrs. In a Que[place]o presentation. It appeared intact, was discarded per patient desire. Estimated blood loss was 100 cc. Condition: Good. Patient plans to breast-feed.
[2020-10-14] MEDS ORDERED: Benzocaine/Menthol 20%-0.5% Spray 56 GM Canister TOP PRN (23:32)
[2020-10-14] MEDS ORDERED: Acetaminophen 325 MG Tab PO PRN (23:32)
[2020-10-14] MEDS ORDERED: Witch Hazel Medicated Pads 40/Jar TOP PRN (23:32)
[2020-10-14] MEDS ORDERED: Docusate Sodium 100 MG Cap PO PRN (23:32)
[2020-10-15] MEDS: Ibuprofen 600 MG Tab PO PRN ×2 (00:05→06:54)
--- NOTE | 2020-10-15 06:45 | PCM.DCSUM1 ---
Discharge Summary - Hospital Course Diagnosis: Stroke: No - Discharge Data Discharge Date: 10/15/20 Discharge Disposition: Home, Self-Care 01 Condition: Good - Referral to Home Health Primary Care Physician: Marin Staley MD - Patient Instructions Diet: Usual Diet as Tolerated Activity: No Strenuous Activities Driving: May Drive Today Showering/Bathing: May Shower Notify Provider of: Fever, Increased Pain, Swelling and Redness, Drainage, Nausea and/or Vomiting - Discharge Plan *PRESCRIPTION DRUG MONITORING PROGRAM REVIEWED*: No *COPY OF PRESCRIPTION DRUG MONITORING REPORT IN PATIENT RICKEY: No Home Medications: Home Meds Loratadine [Claritin] 10 mg PO DAILY 10/14/20 [History] Patient Handouts: Care After Vaginal Delivery Referrals: Marin Staley MD [Primary Care Provider] - (2 weeks) - Discharge Summary/Plan Comment DC Time >30 min.: No - General Info Date of Service: 10/15/20 Functional Status: Reports: Pain Controlled - Review of Systems General: Reports: No Symptoms HEENT: Reports: No Symptoms Pulmonary: Reports: No Symptoms Cardiovascular: Reports: No Symptoms Gastrointestinal: Reports: No Symptoms Genitourinary: Reports: No Symptoms Musculoskeletal: Reports: No Symptoms Skin: Reports: No Symptoms Neurological: Reports: No Symptoms Psychiatric: Reports: No Symptoms - Patient Data Vitals - Most Recent: Last Vital Signs Temp 37.0 C 10/15/20 03:20 Pulse 63 10/15/20 03:20 Resp 16 10/15/20 03:20 BP 118/71 10/15/20 03:20 Pulse Ox 97 10/15/20 03:20 Weight - Most Recent: 85.411 kg I&O - Last 24 hours: Intake & Output 10/14/20 10/14/20 10/15/20 14:59 22:59 06:59 Intake Total 3000 Output Total 1179 Balance -1179 3000 Lab Results - Last 24 hrs: Laboratory Results - last 24 hr 10/14/20 10/14/20 10/14/20 Range/Units 12:13 12:32 12:32 WBC 9.27 (3.98-10.04) K/mm3 RBC 4.20 (3.98-5.22) M/mm3 Hgb 11.9 (11.2-15.7) gm/dl Hct 36.1 (34.1-44.9) % MCV 86.0 D (79.4-94.8) fl MCH 28.3 (25.6-32.2) pg MCHC 33.0 (32.2-35.5) g/dl RDW Std Deviation 41.9 (36.4-46.3) fL Plt Count 281 (182-369) K/mm3 MPV 9.4 (9.4-12.3) fl Neut % (Auto) 69.5 (34.0-71.1) % Lymph % (Auto) 21.6 (19.3-51.7) % [place] % (Auto) 8.4 (4.7-12.5) % Eos % (Auto) 0.2 L (0.7-5.8) Baso % (Auto) 0.1 (0.1-1.2) % Neut # (Auto) 6.44 H (1.56-6.13) K/mm3 Lymph # (Auto) 2.00 (1.18-3.74) K/mm3 [place] # (Auto) 0.78 H (0.24-0.36) K/mm3 Eos # (Auto) 0.02 L (0.04-0.36) K/mm3 Baso # (Auto) 0.01 (0.01-0.08) K/mm3 RPR Non-reactive (NONREACTIVE) SARS-CoV-2 RNA (ZAY) Negative (NEGATIVE) Med Orders - Current: Current Medications Acetaminophen (Acetaminophen 325 Mg Tab) 650 mg PO Q4H PRN PRN Reason: mild pain or fever Benzocaine/Menthol (Benzocaine/Menthol 20%-0.5% [place] 56 Gm Canister) 0 gm TOP ASDIRECTED PRN PRN Reason: Perineal Comfort Measure Last Admin: 10/15/20 00:05 Dose: 1 can Documented by: Docusate Sodium (Docusate Sodium 100 Mg Cap) 100 mg PO BID PRN PRN Reason: Constipation Ibuprofen (Ibuprofen 600 Mg Tab) 600 mg PO Q4H PRN PRN Reason: Mild pain or fever Last Admin: 10/15/20 00:05 Dose: 600 mg Documented by: Prenat Multivit/[place]/Iron/Folic Ac ( Multivitamin With Calcium/Folic Acid/Iron Tab) 1 each PO DAILY FIDEL Witch Lilia (Witch Lilia Medicated Pads 40/Jar) 1 pad TOP ASDIRECTED PRN PRN Reason: Perineal Comfort Measure Last Admin: 10/15/20 00:05 Dose: 1 tub Documented by: Discontinued Medications Diphenhydramine HCl (Diphenhydramine 50 Mg/Ml Sdv) 25 mg IVPUSH Q6H PRN PRN Reason: pruritis Ephedrine Sulfate (Ephedrine 50 Mg/Ml Sdv) 5 mg IVPUSH ASDIRECTED PRN PRN Reason: Hypotension Fentanyl (Fentanyl 100 Mcg/2 Ml Sdv) 100 mcg EPIDUR Q3H PRN PRN Reason: Pain Last Admin: 10/14/20 19:39 Dose: 100 mcg Documented by: Fentanyl/Bupivacaine HCl (Bupivacaine/Fentanyl/Ns 100 Ml Bag) 100 ml EPIDUR ASDIRECTED PRN PRN Reason: Pain Last Admin: 10/14/20 19:39 Dose: 100 ml Documented by: Oxytocin/Lactated Ringer's (Pitocin In Lr 10 Units/1,000 Ml) 10 unit in 1,000 mls @ 500 mls/hr IV .CONTINUOUS FIDEL Oxytocin/Lactated Ringer's (Pitocin In Lr 10 Units/1,000 Ml) 10 unit in 1,000 mls @ 12 mls/hr IV TITRATE FIDEL; Protocol Last Titration: 10/14/20 21:30 Dose: 6 munits/min, 36 mls/hr Documented by: Lactated Ringer's (Ringers, Lactated) 1,000 mls @ 100 mls/hr IV ASDIRECTED FIDEL Last Admin: 10/14/20 18:54 Dose: 100 mls/hr Documented by: Lidocaine HCl (Lidocaine 1% 50 Ml Mdv) 50 ml INJECT ONETIME ONE Stop: 10/14/20 12:12 Last Admin: 10/15/20 01:59 Dose: Not Given Documented by: Nalbuphine HCl (Nalbuphine 10 Mg/1 Ml Vial) 10 mg IVPUSH Q2H PRN PRN Reason: Pain Ondansetron HCl (Ondansetron 4 Mg/2 Ml Sdv) 4 mg IVPUSH Q4H PRN PRN Reason: Nausea/Vomiting Sodium Chloride (Sodium Chloride 0.9% 10 Ml Syringe) 10 ml FLUSH ASDIRECTED PRN PRN Reason: Keep Vein Open - Exam General: Reports: Alert, Oriented HEENT: Reports: Pupils Equal, Pupils Reactive, EOMI, Mucous Membr. Moist/[place] Neck: Reports: Supple Lungs: Reports: Clear to Auscultation, Normal Respiratory Effort Cardiovascular: Reports: Regular Rate, Regular Rhythm GI/Abdominal Exam: Normal Bowel Sounds, Soft, Non-Tender, No Organomegaly, No Distention, No Abnormal Bruit, No Mass Back Exam: Reports: Normal Inspection, Full Range of Motion Extremities: Normal Inspection, Normal Range of Motion, Non-Tender, No Pedal Edema, Normal Capillary Refill Skin: Reports: Warm, Dry, Intact Wound/Incisions: Reports: Healing Well Neurological: Reports: No New Focal Deficit Psy/Mental Status: Reports: Alert, Normal Affect, Normal Mood
--- NOTE | 2020-10-15 08:53 | PCM48HPAN ---
Post Anesthesia Note - EVALUATION WITHIN 48HRS OF ANESTHETIC Vital Signs in Normal Range: Yes Patient Participated in Evaluation: Yes Respiratory Function Stable: Yes Airway Patent: Yes Cardiovascular Function Stable: Yes Hydration Status Stable: Yes Pain Control Satisfactory: Yes Nausea and Vomiting Control Satisfactory: Yes Mental Status Recovered: Yes Vital Signs: Last Vital Signs Temp 98.6 F 10/15/20 03:20 Pulse 63 10/15/20 03:20 Resp 16 10/15/20 03:20 BP 118/71 10/15/20 03:20 Pulse Ox 97 10/15/20 03:20 - COMMENTS/OBSERVATIONS Free Text/Narrative:: Visited with patient this morning regarding epidural experience. Patient stated that the epidural worked great and she had full pain relief. Patient stated that her back was having mild discomfort. Discussed that this is normal, the sensation tends to feel like a bruise. Encouraged patient to notify OB/Anesthesia if back pain increases. Also discussed signs and symptoms of infection, post-dural puncture headache, and post- depression. Encouraged patient to call and notify OB/Anesthesia if signs of infection, post-dural puncture headache, post- depression, and increased back pain and patient will be directed on a plan of care. Patient verbalized understanding. No questions or concerns voiced at this time. Anaid Ferrell TELEVISION TUBE INSPECTOR
[2020-10-15] MEDS ORDERED: Prenatal Multivitamin with Calcium/Folic Acid/Iron Tab PO SCH (09:00)
[2020-10-15 09:31] VITALS: BP 124/65; PULSE 64
== END 2020-10-15 09:25 | disposition home or self-care (01) | DRG 807 ==
LOC: JD.OBCHECK 11:59 → JD.OB 11:59 → JD.OBCHECK 12:11 → JD.OB 12:12 → OBSVTOIN 22:24 → JD.OB 22:24
PROVIDERS: ADMIT Obstetrics & Gynecology; ATTEND Obstetrics & Gynecology
PROC: 10E0XZZ Delivery of Products of Conception, External Approach (ICD-10-PCS; principal; 2020-10-14)
PROC: 3E033VJ Introduction of Other Hormone into Peripheral Vein, Percutaneous Approach (ICD-10-PCS; 2020-10-14)
PROC: 3E0R3BZ Introduction of Anesthetic Agent into Spinal Canal, Percutaneous Approach (ICD-10-PCS; 2020-10-14)
DX: O48.0 Post-term pregnancy (principal); Z37.0 Single live birth; O77.0 Labor and delivery complicated by meconium in amniotic fluid; Z3A.40 40 weeks gestation of pregnancy; Z88.0 Allergy status to penicillin; Z88.1 Allergy status to other antibiotic agents; Z20.822 Contact with and (suspected) exposure to COVID-19
CPT/HCPCS: 01967; 36415; 51702; 59025; 59409; 85025; 86592; A9270-GY; J2590; J3010; J7120; U0002